=== PATIENT | male | born 1970 | race Caucasian/White ===

== ENCOUNTER 2020-05-15 07:48 | Day surgery (SDC) | payer OTHER, SELFPAY ==
--- NOTE | 2020-05-13 15:35 | HO.ANESPROP2 ---
Documented by User: Joyce Clemens 05/13/20 15:36 HPI - Anesthesia Eval Consult details Narrative: 49yo M for Colonoscopy [facility] Past Medical History Medical History Elevated cholesterol GERD (gastroesophageal reflux disease) Hx of hearing loss Surgical History Surgical History History of urologic surgery Social History Social History Smoking Status: Never smoker Use of substances other than those prescribed or required for medical reasons: No Advance Directives: No Meds Allergies Allergy/AdvReac Type Severity Reaction Status Date / Time No Known Allergies Allergy Verified 05/09/20 14:32 Home Medications Medication Instructions Recorded Confirmed Type esomeprazole magnesium [Nexium] 20 mg PO DAILY 05/09/20 05/09/20 History Exam Exam Date and Time: May 13, 2020 5665 Assessment and Plan Assessment Anesthesia Assessment: Chart Reviewed Documented by User: Giuseppe Vu 05/15/20 10:06 [facility] Past Medical History Medical History Elevated cholesterol GERD (gastroesophageal reflux disease) Hx of hearing loss Surgical History Surgical History History of urologic surgery Social History Social History Smoking Status: Never smoker Use of substances other than those prescribed or required for medical reasons: No Advance Directives: No Meds Allergies Allergy/AdvReac Type Severity Reaction Status Date / Time No Known Allergies Allergy Verified 05/09/20 14:32 Home Medications Medication Instructions Recorded Confirmed Type esomeprazole magnesium [Nexium] 20 mg PO DAILY 05/09/20 05/09/20 History Exam Airway Mallampati Class: III TM Dist: >3cm Neck ROM: Full Heart: RRR Assessment and Plan Assessment Anesthesia Assessment: Anesthesia Plan Discussed Final Anesthetic Review NPO: Yes ASA Class: II Anesthetic Plan Anesthetic Plan: MAC:
[2020-05-15 08:15] VITALS: BP 128/89; PULSE 66; RESP 16; TEMP 525.5; TEMP 978; O2SAT 99
[2020-05-15 08:16] VITALS: BMI 27.9
--- NOTE | 2020-05-15 09:17 | P.HPSUR_ITS ---
Pre-Procedural Eval Section A The patient is an INPATIENT: No The History & Physical has been completed within 30 days and I have reviewed it.: No Section B Chief Complaint: screening Details of Present Illness: This is his second colonoscopy his last was 10 years ago and normal. He denies any bowel or upper GI problems. THere are no prior problems with anesthesia or sedation. He denies any cardiac or respiratory problems. His father had colon polyps removed at age 50. Relevant Family History (Specify if Yes): Yes Relevant Social History: None Present Medications: see Short Stay [facility] assessment Medical History: Significant History (OBESITY Hyperlipidemia. vitamin D deficiency. Hearing loss unspecified ear) History of Previous Operations: Relevant previous surgery/procedure and date(s) ( urologic surgery at 19 years of age to remove a growth on one of his ureters) Allergies: Allergies Allergy/AdvReac Type Severity Reaction Status Date / Time No Known Allergies Allergy Verified 05/09/20 14:32 Review of Systems Sugical H&P ROS: Negative: Constitution, Cardiovascular, Respiratory and Gastrointestinal Exam Surgical H&P Exam: Normal: Heart, Normal: Lungs, Normal: Extremities and Normal: Abdomen Plan Diagnosis/Plan: Unchanged Patient has been examined and remains a candidate for the planned procedure
--- NOTE | 2020-05-15 09:24 | P.BOP_ITS ---
Brief Operative Note Date of procedure: 05/15/20 Pre-op diagnosis: colon cancer screening, FH of colon polyps Post-op diagnosis: other (Colon polyps, diverticulosis) Procedure: COLONOSCOPY TILL CECUM WITH BIOPSIES Consent: Indications for the procedure and potential complications of bleeding, perforation, reaction to medications and missed diagnosis were discussed with the patient and informed consent was obtained. Instrument: Olympus PCF H 190 L variable stiffness pediatric colonoscope Monitoring: Vital signs and clinical assessment, intermittent blood pressure monitoring, continuous EKG monitoring, Pulse oximetry and Carbon Dioxide monitoring were done throughout the procedure. Colon withdrawl time was 15 minutes. Procedure: The patient was placed in the left lateral decubitis position and pre-procedure medications were administered. After a digital rectal examination of the ano-rectum, the video colonoscope was inserted into the rectum and advanced through the colon to the cecum. The colonoscope was slowly withdrawn in a retrograde panoramic fashion and the colon mucosa was carefully examined including a retroflexed view of the rectum. Findings and interventions are described below. Procedure Difficulty: Without difficulty Findings: Terminal Ileum: Distal 5 cm was examined and appeared normal Cecum: Normal Ascending Colon: A 4-5 mm diminutive appearing polyp removed with the cold biopsy Transverse Colon: Normal Descending Colon: Moderate diverticulosis Sigmoid Colon: Moderate diverticulosis Rectum: A 3-4 mm diminutive appearing polyp removed with the cold biopsy Ano-rectum: Normal Colon preparation: Excellent Impression and Post Procedure Diagnosis: Colonoscopy Findings: Two diminutive polyps removed Moderate diverticulosis seen in the left colon Plan: Await pathology results Patient has an appointment on 06/10/20 in the GI Clinic with Marlyn Lezama NP -. Repeat Colonoscopy interval based on path results - in 5 years if polyps are adenomatous and 10 years if polyps are hyperplastic. Above findings were reviewed with the patient and [colon polyps] and [diverticulosis] handouts were given in the discharge area Surgeon: Pio Campos MD Anesthesia: MAC (Dr Vu) Alternative Financing Specialist: Arely Simmons Estimated blood loss (mL): 0 Pathology: other (A. AC polyp x 1, B. Rectal polyp x 1) Condition: stable Disposition: PACU
[2020-05-15 10:02] VITALS: BP 123/84; PULSE 76; RESP 18; TEMP 36.1; O2SAT 98
[2020-05-15 10:15] VITALS: BP 120/82; PULSE 65; RESP 18; O2SAT 98
--- NOTE | 2020-05-15 10:28 | PC.NURSE ---
1027 AWAKE ALERT [facility]STA PO MONITORS AND IVF DC'D TOTAL IN IS 700 ML LR ASST OOB CH STEADY, IV DC'D TIP INTACT PRESSURE AND DRESSING TO SITE, DRESSED SELF AT BS CALL PAGAN IN REACH PLAN TO AMB TO DC
--- NOTE | 2020-05-15 10:51 | HO.POSTANES ---
Post Anesthesia Evaluation Post Anesthesia Evaluation Vital Signs: Vital Signs Temp Pulse Resp BP Pulse Ox 05/15/20 10:15 97 F 65 18 120/82 98 05/15/20 10:02 97 F 76 18 123/84 98 05/15/20 08:15 97.8 F 66 16 128/89 99 Anesthesia: Monitored Mental Status: Awake Pain Control: Satisfactory Nausea/Vomiting: None Hydration: Adequate Anesthesia-Related Issues: No Anes. Related Issues
== END 2020-05-15 23:59 | disposition home or self-care (01) ==
PROVIDERS: PCP Internal Medicine; Visit Provider Internal Medicine Gastroenterology
PROC: 0DJD8ZZ Inspection of Lower Intestinal Tract, Via Natural or Artificial Opening Endoscopic (ICD-10-PCS; CPT 45378; principal; 2020-05-15 09:00)
DX: Z12.11 Encounter for screening for malignant neoplasm of colon (principal); Z83.71 Family history of colonic polyps; K63.5 Polyp of colon; K62.1 Rectal polyp; K57.30 Diverticulosis of large intestine without perforation or abscess without bleeding; K21.9 Gastro-esophageal reflux disease without esophagitis; E78.5 Hyperlipidemia, unspecified; Z79.899 Other long term (current) drug therapy
CPT/HCPCS: 45380; 88305

== ENCOUNTER → 2020-06-10 09:00 | Outpatient (BNVA) | payer OTHER, SELFPAY | PROVIDERS: PCP Internal Medicine; Referring Provider Internal Medicine; Visit Provider Nurse Practitioner | DX: Z76.89 Persons encountering health services in other specified circumstances (principal) ==

== ENCOUNTER 2021-01-26 15:16 | Outpatient (REF) | payer OTHER, SELFPAY ==
--- NOTE | 2021-01-26 16:36 | MHC.AU.ANR ---
Adult Audiological Evaluation Date of Visit: 01/26/21 Reason for Appointment: Audiological evaluation due to concern for decreased hearing. Mr. Fritz reports difficulties hearing from his right ear. He notes that he was previously seen by ENT Dr. Gavin at [facility] [employer] and was diagnosed with an asymmetrical hearing loss. He believes he had an MRI that ruled out any abnormalities in the right ear and was told that the loss in the right ear was likely due to noise exposure. Mr. Fritz reports that he's gradually noticing increased difficulties hearing and understanding speech. He notes difficulties in meetings at work and in background noise. He has an extensive history of noise exposure related to serving the [employer] for 26 years. He is still currently working in the [employer]. Does patient feel they have a hearing loss?: Yes If Yes, Which Ear?: Right Ear Has hearing been tested previously?: Yes Previous Hearing Test Results: Joellen, Elliott, Gary, Lucita, results not available for review today. Hearing Handicap Inventory: HHIE SCORE: 20 Based on HHIE score, patient has: Mild to moderate perceived hearing handicap Ear History: Bothersome Tinnitus/Ringing/Noises in Ears: Right Ear Blocked/Full Sensation in Ear(s): Right Ear History of occupational noise exposure?: Yes History: History: Yes Branch: [employer] Years in : 20+ Years Medical History: Medical History: Unremarkable Medical History Otoscopy: Right Ear: Unremarkable Left Ear: Unremarkable Tympanometry: Tympanometry performed due to: To assess integrity of the middle ear system Right Ear: Normal Middle Ear System (Type A) Left Ear: Normal Middle Ear System (Type A) Hearing Evaluation: Transducer(s) Used: Insert Earphones, Bone Conduction Method: Conventional Audiometry Stimuli Used: Pure Tones Right Ear: Description of Hearing: Normal hearing at 250 Hz, sloping to a mild to severe sensorineural hearing loss from 500-8000 Hz. Hearing in the right ear is 20-80 dBHL worse than the right ear across the frequency range. Left Ear: Description of Hearing: Normal hearing from 250-8000 Hz. Speech Recognition Threshold (SRT): Method Used: Monitored Live Voice Stimuli Used: Spondee Words Right Ear: 30 dBHL Left Ear: 5 dBHL Word Discrimination: Method: Monitored Live Voice Word Lists Used: NU-6 Right Ear: 84% at 70 dBHL Left Ear: 92% at 45 dBHL Recommendations: Audiological re-evaluation in one year. Amplification use in the right ear is recommended. Patient is interested in pursuing a hearing aid for the right ear. He will check to see if he is eligible for VA, DOD, or insurance benefits for hearing aids. Discussed options briefly and advised that if he would like to pursue a hearing aid through our clinic he is welcome to return for a hearing aid evaluation. If medical records indicate that Mr. Fritz has NOT had an MRI to rule out abnormalities of the right ear, it is recommended that he follow-up with an ENT physician for evaluation. Diagnosis: Primary Diagnosis: H90.41 SNHL Unilateral Right Ear, W/Unrestricted Contralateral Hearing Services Performed: Services Performed: Comprehensive Audiological Evaluation (CPT 85383) Tympanometry (CPT 67666) Signature: Provider: Deb Perea, CCC-A
== END 2021-01-26 15:17 | disposition home or self-care (01) ==
LOC: HO.SH 15:16
PROVIDERS: Visit Provider Internal Medicine
DX: H90.41 Sensorineural hearing loss, unilateral, right ear, with unrestricted hearing on the contralateral side (principal)
CPT/HCPCS: 92557; 92567

== ENCOUNTER 2021-06-10 14:16 | Outpatient (REF) | payer SELFPAY ==
--- NOTE | 2021-06-10 15:09 | MHC.AU.HAS ---
Hearing Aid Evaluation Date of Visit: 06/10/21 Historical Information: Description of Hearing: Normal hearing left ear. Mild to severe SNHL in the right ear. Current personal amplification information, if applicable: None Summary: Mr. Fritz is interested in purchasing a hearing aid for the right ear. He was seen for an audiological evaluation on 01/26/2021, at which time a monaural hearing aid for the right ear was recommended. Discussed hearing aid styles and technologies. He is interested in a LUCERO style rechargeable hearing aid in SaaSMAX-level technology. Demoed a Phonak aid in the clinic today, and he noticed an improvement and a decrease in his tinnitus. Hearing Aid Prescription: Based on the individual?s shared listening needs, communication environments, dexterity, desire for connectivity, and personal preferences, the following prescription for amplification has been made: Right ear: Cupola Melting Supervisor: Phonak Model: Steam[employer] Technologyeo P70-R Battery Size: Rechargeable Color: P5 Jukebox Routeman: Size 1 M Type of Dome: vented Plan of Care: Patient wishes to purchase hearing aids as prescribed. Medical Clearance to be requested from PCP/ENT. Hearing Instrument Fitting to be scheduled when materials arrive. Hearing aid ordered. Paid $350 down payment. Primary Diagnosis: H90.41 SNHL Unilateral Right Ear, W/Unrestricted Contralateral Hearing Signature: Provider: Deb Perea, EVA-A
== END 2021-06-10 14:17 | disposition home or self-care (01) ==
LOC: HO.HAP 14:16
PROVIDERS: Visit Provider Internal Medicine
DX: Z46.1 Encounter for fitting and adjustment of hearing aid (principal); H90.41 Sensorineural hearing loss, unilateral, right ear, with unrestricted hearing on the contralateral side
CPT/HCPCS: 92591

== ENCOUNTER 2021-06-26 09:19 | Outpatient (REF) | payer SELFPAY | END 2021-06-26 09:20 | disposition home or self-care (01) | LOC: HO.HAP 09:19 | PROVIDERS: Visit Provider Internal Medicine | DX: Z46.1 Encounter for fitting and adjustment of hearing aid (principal); H90.41 Sensorineural hearing loss, unilateral, right ear, with unrestricted hearing on the contralateral side | CPT/HCPCS: V5257; V5299 ==

== ENCOUNTER 2021-07-15 09:49 | Outpatient (REF) | payer SELFPAY | END 2021-07-15 09:50 | disposition home or self-care (01) | LOC: HO.HAP 09:49 | PROVIDERS: Visit Provider Internal Medicine | DX: Z13.89 Encounter for screening for other disorder (principal) ==

== ENCOUNTER 2022-01-26 12:40 | Outpatient (REF) | payer OTHER, SELFPAY ==
--- NOTE | ~2022-01-26 | XR_ITS ---
EXAMINATION: XR LUMBOSACRAL SPINE CLINICAL INFORMATION: Low back pain COMPARISON: None TECHNIQUE: Three views of the lumbosacral spine. FINDINGS: Moderate-severe L5-S1 degenerative disc disease with slight retrolisthesis. Mild degenerative disc disease at L1-L2 and L4-L5. No fracture. XR/XR lumbar spine 2-3V IMPRESSION: Moderate-severe L5-S1 degenerative disc disease with slight retrolisthesis.
== END 2022-01-26 12:41 | disposition home or self-care (01) ==
LOC: HO.XRAY 12:40
PROVIDERS: PCP Internal Medicine; Visit Provider Nurse Practitioner Family
DX: M54.50 Low back pain, unspecified (principal)
CPT/HCPCS: 72100

== ENCOUNTER 2022-04-08 07:00 | Outpatient (RCR) | payer OTHER, SELFPAY ==
--- NOTE | 2022-02-17 08:26 | MHC.PT.EP ---
[facility] [place] Office [place] Office [place] Office [address] [place] [address] [phone] F: [phone] F: [phone] F: [phone] F: [phone] Physical Therapy Plan of Care Date of Evaluation: Date of Surgery: NA Diagnosis: LOW BACK PAIN Assessment: Pt IS 51 YO M REFERRED TO PT [facility] WITH LBP. Pt REPORTS PAIN IN BACK X 1 YR (INITIALLY AGGRAVATED BY [employer] SIT UP TEST LAST YEAR, WITH RECENT IRRITATION STARTING ABOUT 1 MONTH AGOE (IS SUPPOSED TO HAVE TESTING THIS WEEKEND). PER XRAY, Pt WITH MOD-SEVER DDD L5 SI AREA WITH MIN RETROLISTHESIS. PRESENTS WITH DECREASED ABD STRENGTH, DECREASED LE FLEXIBILITY. GOOD PT CANDIDATE TO ADDRESS THESE ISSUES. ED RE SIT UP TEST NOT APPROP FOR HIM (WILL SPEAK WITH PCP RE OPTING OUT OF THIS PORTION/PLANK TEST Frequency and Duration: The patient will be seen 2X/WK X 6 WKS Short Term Goals: 1. DECREASED FREQ R LE SXS 2. INCREASED AWARENESS BACK CARE/POSTURE 3. Pt TO PERF 2-3 TASKS WITH PROPER BODY MECH Artificial Breast Fabricator Goals: 1. I HEP WITH DC EX PLAN 2. DECREASED BACK PAIN AT LEAST 50% WITH ADLS 3. IMPROVED MOD OSWESTRY (SOC=19/50) Treatment Plan: Modalities to reduce pain, spasms and effusion. Manual therapy to restore motion and function. Therapeutic exercise to improve strength and flexibility. Neuromuscular re-education for posture and balance. Therapeutic activities to return to functional activities of daily living. Electronically signed by: JONO SHEETS PT Please sign and return to therapist. Thank you for your referral.
--- NOTE | 2022-02-19 09:45 | MHC.PT.EP ---
[facility] [place] Office [place] Office [place] Office [address] [place] [address] [phone] F: [phone] F: [phone] F: [phone] F: [phone] Physical Therapy Plan of Care Date of Evaluation: Date of Surgery: NA Diagnosis: LOW BACK PAIN Assessment: Pt IS 51 YO M REFERRED TO PT [facility] WITH LBP. Pt REPORTS PAIN IN BACK X 1 YR (INITIALLY AGGRAVATED BY [employer] SIT UP TEST LAST YEAR, WITH RECENT IRRITATION STARTING ABOUT 1 MONTH AGOE (IS SUPPOSED TO HAVE TESTING THIS WEEKEND). PER XRAY, Pt WITH MOD-SEVER DDD L5 SI AREA WITH MIN RETROLISTHESIS. PRESENTS WITH DECREASED ABD STRENGTH, DECREASED LE FLEXIBILITY. GOOD PT CANDIDATE TO ADDRESS THESE ISSUES. ED RE SIT UP TEST NOT APPROP FOR HIM (WILL SPEAK WITH PCP RE OPTING OUT OF THIS PORTION/PLANK TEST Frequency and Duration: The patient will be seen 2X/WK X 6 WKS Short Term Goals: 1. DECREASED FREQ R LE SXS 2. INCREASED AWARENESS BACK CARE/POSTURE 3. Pt TO PERF 2-3 TASKS WITH PROPER BODY MECH Communications Planner Goals: 1. I HEP WITH DC EX PLAN 2. DECREASED BACK PAIN AT LEAST 50% WITH ADLS 3. IMPROVED MOD OSWESTRY (SOC=19/50) Treatment Plan: Modalities to reduce pain, spasms and effusion. Manual therapy to restore motion and function. Therapeutic exercise to improve strength and flexibility. Neuromuscular re-education for posture and balance. Therapeutic activities to return to functional activities of daily living. Electronically signed by: JONO SHEETS PT Please sign and return to therapist. Thank you for your referral.
--- NOTE | 2022-02-19 09:46 | MHC.PT.OD ---
[facility] [place] Office [place] [facility] [place] Office [address] [place] [address] [phone] F: [phone] F: [phone] F: [phone] F: [phone] Physical Therapy Daily Note Diagnosis: LOW BACK PAIN Date of Surgery: NA Date of Evaluation: 02/17/22 Date of Treatment: 02/19/22 Treatments to Date: 2 Cancellations to Date: No Shows to Date: Authorized Visits: Insurance End Date: Precautions/ Contraindications:Hx R sciatcia sx radiating to buttock intermittently Subjective: Pt states he is scheduled to undergo physical fitness test (running, crunches, and push-ups) this weekend, has concerns and is hoping to obtain clearance to push back this physical fitness testing for a few weeks after improving current condition with therapy. Has been doing stretches, feels his calves are very tight. Did have some sx after trying to walk briskly yesterday. Pain Score and Location: 7 LB/R LE Objective Flowsheet: Tests & Measures PT EVAL Exercises BIKE WITH ABD BRACING FOR WARM UP Instructed and reviewed HIP ER/IR stretch with goals of understanding what stretch is for avoidance of sx which radiate down the leg or cause R sided back pain, seated 90/90 HS stretch, also shown seated HS stretch x 20 sec hold x 4R, standing HS stretch for variance of position x 4R x 20 sec hold. Child pose stretches fwd/laterally x 4R x 20 sec hold, seated table slides x 4R x 20 sec hold. Quadriped position with neutral core stabilization for prep of planks moving forward x 5 sec. Hooklying abdominal brace in neutral x 2 set 5R, discussed lumbar support/towel roll against back for support. Education re: modification of body mechanics/movements avoidance of shear forces, educated re: golfers' lift in lieu of trunk flexion at waist including squatting and movement positions. Importance of frequent low load stretching, avoidance of tasks which irritate sx, goal of exercises. Stretching frequently throughout the day several times. Prone over 1 pillow for HG IASTM to R lumbar R QL and paraspinal regions with erythema response noted to R lumbar paraspinals. Also applied two strips ROCKTAPE vertically for paraspinal traction in addition to two lateral I strips pulled midline<>lateral tension to ease QL mm restriction and ease tension region of lumbar. Pt educated re: application/removal/indications for use. ED RE DX/EVAL FINDINGS/RX PLAN. ED RE SIT POSTURE WITH TOWEL ROLL. DISCUSSION RE TESTING (SUPPOSED TO DO TESTING THIS WEEKEND)..RECOMMENDED HE DOES NOT DO SIT UP PORTION and delay timing of PT test to ease... therapist to send this note along with eval to WITH PCP VS INFO FROM THIS EVAL) Modalities Assessment: 02/19/22 Pt presents for second visit of PT today, presents with intermittent sx radiating into R buttocks. Sx consistent with HNP like symptoms. Pt sx irritated by sitting and flexed positions but demonstrated good tolerance for trial of activities in the office this date. Pt would benefit from delay of PT test (scheduled for this weekend) to be able to allow time for recovery/strengthening of core/lumbar region as current activities such as performing crunches and running would likely exacerbate sx. Pt has not yet attempting running, reports tried to walking a brisk mile yesterday with fair tolerance. He states he is not looking to get out of performance of fitness testing but is rather seeking a delay in time of performing in a few weeks it to allow increased time for therapy to take effect. He is highly motivated and was initiated in modification tasks for prone planking- by starting neutral core control in quadriped position. We discussed recommendation in performing goal of prone plank vs crunches moving forward as a better alternative for fitness screening. Pt issued written HEP this date (see sheets). Secondary therapist to fax form that pt would need signed off to referring provider office for modification of PT testing. Pt to be seen in PT office twice a week for current sx. Pt IS 51 YO M REFERRED TO PT FROM [facility] WITH LBP. Pt REPORTS PAIN IN BACK X 1 YR (INITIALLY AGGRAVATED BY FITNESS SIT UP TEST LAST YEAR, WITH RECENT IRRITATION STARTING ABOUT 1 MONTH AGOE (IS SUPPOSED TO HAVE TESTING THIS WEEKEND). PER XRAY, Pt WITH MOD-SEVER DDD L5 SI AREA WITH MIN RETROLISTHESIS. PRESENTS WITH DECREASED ABD STRENGTH, DECREASED LE FLEXIBILITY. GOOD PT CANDIDATE TO ADDRESS THESE ISSUES. ED RE SIT UP TEST NOT APPROP FOR HIM (WILL SPEAK WITH PCP RE OPTING OUT OF THIS PORTION/PLANK TEST PT Plan: Assess response to core stabilization, manual therapy IASTM/ taping Note to be faxed to [facility] office to aide in expediting goal of delaying time of PT testing to allow patient to improve current sx. Short Term Goals: 1. DECREASED FREQ R LE SXS 2. INCREASED AWARENESS BACK CARE/POSTURE 3. Pt TO PERF 2-3 TASKS WITH PROPER BODY MECH [employer] Goals: 1. I HEP WITH DC EX PLAN 2. DECREASED BACK PAIN AT LEAST 50% WITH ADLS 3. IMPROVED MOD OSWESTRY (SOC=) Electronically signed by: Shannon Aparicio, PT, DPT
== END 2022-04-13 09:30 | disposition home or self-care (01) ==
LOC: HO.PTWFD 07:00
PROVIDERS: PCP Internal Medicine; Visit Provider Nurse Practitioner Family
DX: M54.50 Low back pain, unspecified (principal)
CPT/HCPCS: 97110; 97140; 97161; 97530; 97535

== ENCOUNTER 2022-07-30 08:25 | Outpatient (REF) | payer OTHER, SELFPAY ==
[2022-07-30 08:43] LABS: MANUAL DIFF FLAG NO
[2022-07-30 09:15] LABS: Basophils Percent Auto 0.4 % (0-2); Eosinophils Absolute Auto 0.1 X10*3/uL (0.0-0.4); Eosinophils Percent Auto 2.5 % (0-4); Hematocrit 50.4 % (42.0-52.0); Hemoglobin 16.6 g/dl (14.0-18.0); Imm Gran Abs Auto 0.02 X10*3/uL (0.00-0.03); Imm Gran Pct Auto 0.4 % (0.0-0.4); Lymphocytes Absolute Auto 1.6 X10*3/uL (1.2-4.9); Lymphocytes Percent Auto 27.4 % (20-40); Mean Corpuscular HGB Conc 32.9 g/dl (31.0-36.0); Mean Corpuscular Hemoglobin 28.4 pg (27.0-33.0); Mean Corpuscular Volume 86.2 fL (80.0-98.0); Mean Platelet Volume 12.1 fL (9.4-12.4); Monocytes Absolute Auto 0.5 X10*3/uL (0.1-1.2); Neutrophils Absolute Auto 3.4 x10*3/uL (2.0-8.3); Neutrophils Percent Auto 60.3 % (45-73); Platelet Count 200 X10*3/uL (160-400); Red Blood Count 5.85 X10*6/uL (4.60-5.80); Red Cell Distribution Width 13.5 % (11.0-16.0); White Blood Count 5.7 X10*3/uL (4.8-10.8)
[2022-07-30 09:26] LABS: Appearance Urine Clear; Color Urine Yellow; Glucose Urine UA Negative (Negative); Leukocyte Esterase Urine Negative (Negative); Nitrite Urine Negative (Negative); PH 7.5 (5.0-9.0); Specific Gravity - Urine <= 1.005 (1.005-1.025); Urine Blood Negative (Negative); Urine Ketones Negative (Negative); Urine Protein Negative (Neg-Trace)
[2022-07-30 09:48] LABS: Alanine Aminotransferase 28 U/L (0-40); Albumin Level 4.2 g/dL (3.5-5.0); Alkaline Phosphatase 70 U/L (39-117); Anion Gap 11 (12-20); Aspartate Amino Transferase 23 U/L (5-37); Bilirubin Total 1.1 mg/dL (0.0-1.0); Blood Urea Nitrogen 19 mg/dL (9-16); Calcium 9.3 mg/dL (8.4-10.2); Carbon Dioxide 27 mmol/L (22-29); Chloride 101 mmol/L (96-108); Cholesterol 225 mg/dL; Estimated Glomerular Filt Rate > 60; Glucose Fasting 92 mg/dL (60-99); HDL Cholesterol 32 mg/dL; LDL Cholesterol Calculated 146 mg/dl; Potassium 4.4 mmol/L (3.3-5.1); Sodium 135 mmol/L (135-145); Triglycerides 235 mg/dL
[2022-07-30 09:54] LABS: PSA,Total (Free>4and<10) 0.99 ng/mL (0.00-4.00); TSH reflex Free T4 1.99 uIU/mL (0.32-4.0); Vitamin D 25-OH Total 18.9 ng/mL (>30)
== END 2022-07-30 08:26 | disposition home or self-care (01) ==
LOC: HO.LAB 08:25
PROVIDERS: PCP Internal Medicine; Visit Provider Internal Medicine
DX: Z00.00 Encounter for general adult medical examination without abnormal findings (principal); Z12.5 Encounter for screening for malignant neoplasm of prostate; R39.14 Feeling of incomplete bladder emptying; R30.0 Dysuria; E55.9 Vitamin D deficiency, unspecified; E78.2 Mixed hyperlipidemia
CPT/HCPCS: 36415; 80053; 80061; 81003; 82306; 84153; 84443; 85025

== ENCOUNTER 2022-09-20 12:17 | Outpatient (REF) | payer OTHER, SELFPAY | END 2022-09-20 12:18 | disposition home or self-care (01) | LOC: HO.SH 12:17 | PROVIDERS: Visit Provider Internal Medicine | DX: Z13.89 Encounter for screening for other disorder (principal) ==

== ENCOUNTER 2022-09-20 13:00 | Outpatient (REF) | payer SELFPAY ==
--- NOTE | 2022-09-20 16:29 | MHC.AU.HA3 ---
Hearing Instrument Follow-Up- Binaural Date of Visit: 09/20/22 Right Ear: Make, Model, Color, Serial Number: Bianka Bradshaw [id number] SN: [id number] Color: Florencia Buttonhole Tacker Repair Warranty: 09/14/2024 Buttonhole Tacker Loss and Damage Warranty: 09/14/2024 [facility] Service Plan: Battery Size: Rechargeable Full Fashioned Garment Knitter/Slim Tube: 1M Earmold/Dome/CShell/SlimTip:Small vented dome Type of Wax Guard: Cerushield Dispensed By: [facility] Date of Fittin06/26/2021 Follow-Up Summary: Maninder was initially scheduled for an updated audiological evaluation. However, he declined those services, reporting that his hearing is tested annually at work and an updated test is unnecessary at this time. [facility] received doctor's order for test and last test here was in January 2021 and tests are recommended every 1-2 years. Maninder again opted not to have an audiological evaluation. His hearing is reportedly stable based on his work evaluations. He reportedly only needed an appointment for hearing aid maintenance. Cleaned the hearing aid. Vacuumed microphones. Replaced dome and wax guard. A listening check demonstrated that the hearing aid is in good working order. He reported that overall he is doing well with the hearing aid and is trying to wear it more consistently. He reportedly still has difficulty with background noise (e.g., at a restaurant or baseball game). Increased noise management settings and discussed importance of daily consistent use in acclimating to background noise as data logging showed only about 5 hours of use per day. Recommendations: Hearing instrument maintenance in 6 months, or sooner if needed. Please contact our clinic with any questions or concerns. Diagnosis Code(s): Primary Diagnosis: H90.41 SNHL Unilateral Right Ear, W/Unrestricted Contralateral Hearing Signature: Provider: Emanuel Luevano, [facility]
== END 2022-09-20 13:01 | disposition home or self-care (01) ==
LOC: HO.HAP 13:00
PROVIDERS: Visit Provider Internal Medicine
DX: Z46.1 Encounter for fitting and adjustment of hearing aid (principal); H90.41 Sensorineural hearing loss, unilateral, right ear, with unrestricted hearing on the contralateral side
CPT/HCPCS: V5267

== ENCOUNTER 2023-02-21 16:50 | Outpatient (AMB) | payer OTHER, SELFPAY ==
--- NOTE | 2023-02-21 16:52 | MHC.PC.OV ---
Vital Signs 02/21/23 16:56 Height 5 ft 10 in Weight 196 lb 4 oz BMI 28.2 BP 124/80 Blood Pressure Location Lt brachial Position Sitting Pulse 60 Pulse Source Pulse Oximeter Pulse Oximetry (%) 97 Oxygen Delivery Method Room Air Intake Visit Reasons: hyperlipidemia, hearing loss right ear Carpenter Maintenance Required: No Accompanied by: Self / Same As Patient Allergies No Known Allergies Allergy (Verified 02/21/23 17:11) Medication List - Last Reconciled 02/21/23 by Christo Harrison MD No Known Home Meds Tobacco use date assessed: 02/21/23 Dental Screening Dental Screen Date: 02/21/23 Did you have a dental visit in the last 12 months?: Yes Did you have a dental problem in the last 6 months where you did not have access to dental care?: No Was dental information given to patient?: Patient has dentist HPI hyperlipidemia, hearing loss right ear HPI Details Patient comes in today for his follow up visit States that he feels okay He denies any headaches; relates (+) on and off dizziness at times Denies any chest pains, no SOB No nausea/vomiting, no abdominal pain No change in bowel habits noted Would like to know how he did on his labs done back in July 2022 Adds that he recently found out that several of his immediate family members, including his mother, sister, maternal grandmother and 2 aunts, were all diagnosed with brain aneurysm in the past 2 to 3 years and underwent successful corrective surgeries for their aneurysm and states that he was also strongly advised by their physicians to speak with his PCP about getting an MRA of the brain done to check him for aneurysm as well PFSH Medical History Diverticulosis Elevated cholesterol GERD (gastroesophageal reflux disease) Hx of hearing loss Mixed hyperlipidemia Overweight (BMI 25.0-29.9) Vitamin D deficiency Surgical History History of urologic surgery Hx of colonoscopy Family History Father CVD (cardiovascular disease) Mother Hypertension Social History Housing: House Alcohol intake: current Alcohol intake frequency: holidays/special occasions only Patient Tobacco Use Status: Never used Tobacco e-Cigarette/Vaping Use: Never Used Current occupational status: employed Cognitive needs: No Hearing needs: No Vision needs: Yes Questionnaire PHQ-9 Over the last 2 weeks, how often have you been bothered by any of the following problems? 1. Little interest or pleasure in doing things: not at all 2. Feeling down, depressed, or hopeless: not at all 3. Trouble falling or staying asleep, or sleeping too much: not at all 4. Feeling tired or having little energy: not at all 5. Poor appetite or overeating: not at all 6. Feeling bad about yourself - or that you are a failure or have let yourself or your family down: not at all 7. Trouble concentrating on things, such as reading the newspaper or watching television: not at all 8. Moving or speaking so slowly that other people could have noticed. Or the opposite - being so fidgety or restless that you have been moving around a lot more than usual: not at all 9. Thoughts that you would be better off or of hurting yourself in some way: not at all Total score: 0 Depression Screening Interpretation: Negative 29453 - PHQ-9 Billing: Yes Source: Developed by Drs. Dung Lilly, Che Pryor, Gallito Rice and colleagues, with an educational ange from [employer]. Thrive Questionnaire Date Thrive assessed: 02/21/23 I am a: Patient What is your living situation today?: I have a steady place to live Within the past 12 months, did the food you bought not last and you didn't have the money to get more?: Never true Within the past 12 months, did you worry whether your food would run out before you got money to buy more?: Never true Do you have trouble paying for medicines?: No Do you have trouble getting transportation to medical appointments?: No Do you have trouble paying your heating and electricity bill?: No Do you have trouble taking care of your child, family member or friend?: No Do you have trouble with day-to-day activities such as bathing, preparing meals, shopping, managing finances, etc.?: No Are you currently unemployed and looking for a job?: No Are you interested in more education?: No Please select the resources that you would like help with: None Currently or been in a relationship where the following occur: no concerns reported AUDIT C Alcohol Use Questionnaire (AUDIT-C) 1. How often do you have a drink containing alcohol?: Monthly or less 2. How many drinks containing alcohol do you have on a typical day when you are drinking?: 1 or 2 3. How often do you have six or more drinks on one occasion?: Never Total Score: 1 Score Reviewed/Action Taken: Yes TORSTEN-7 AMB Questionnaire TORSTEN-7 Date TORSTEN - 7 assessed: 02/21/23 Feeling nervous, anxious, or on edge: 0 = Not at all Not being able to stop or control worryin = Not at all Worrying too much about different things: 0 = Not at all Trouble relaxin = Not at all Being so restless that it is hard to sit still: 0 = Not at all Becoming easily annoyed or irritable: 0 = Not at all Feeling afraid as if something awful might happen: 0 = Not at all Total TORSTEN-7 score (0-4 normal; 5-9 mild; 10-14 moderate; 15-21 severe): 0 Source: Developed by Drs. Dung Lilly, Che Pryor, Gallito Rice and colleagues, with an educational ange from [employer]. TORSTEN-7 Assessment Billing TORSTEN-7 Assessment Tool: TORSTEN-7 Assessment 90339 Review of Systems Const Denies chills, Denies fatigue, Denies fever(s) and Denies headache(s) ENT Denies dysphagia, Reports dizziness (occasional), Denies otalgia, Denies headache(s), Denies neck pain, Denies odynophagia and Denies sore throat Card Denies chest pain, Denies palpitations and Denies dyspnea Resp Denies cough and Denies dyspnea GI Denies abdominal pain, Denies constipation, Denies dysphagia, Denies heartburn, Denies diarrhea, Denies nausea, Denies odynophagia and Denies vomiting Denies dysuria, Denies nocturia and Denies urinary frequency Musc Denies neck pain Neuro Reports dizziness (occasional) and Denies headache(s) Endo Denies fatigue and Denies palpitations Physical exam (Primary Care) Vital Signs: Last Vital Signs Pulse 60 02/21/23 16:56 BP 124/80 02/21/23 16:56 Pulse Ox 97 02/21/23 16:56 Oxygen Delivery Method Room Air 02/21/23 16:56 BMI result Body Mass Index 28.2 Tobacco/Smoking Status: Tobacco use Status Tobacco use date assessed 02/21/23 02/21/23 17:00 Patient Tobacco Use Status Never used Tobacco 02/21/23 17:00 e-Cigarette/Vaping Use Never Used 02/21/23 17:00 PHQ-9: PHQ-9 Score PHQ-9: Total score 0 02/21/23 17:13 Depression Screening Interpretation: Negative Thrive Assessment: Date of Thrive Assessment Date Thrive assessed 02/21/23 02/21/23 17:00 Currently or been in a relationship where the following occur: no concerns reported Const General: no acute distress and alert HENMT Ears: TM's normal bilaterally and EAC's normal Throat: Yes posterior oropharynx normal and Yes tonsils normal (no TP congestion) Neck Neck: Yes no lymphadenopathy and Yes supple Thyroid: Thyroid normal Resp Auscultation: clear to auscultation bilaterally, no rales and no wheezes Cardio Rate: regular rate Rhythm: regular rhythm Heart sounds: no murmurs GI Palpation (GI): Soft to palpation and nontender Auscultation: normal bowel sounds Skin Rashes: no rashes Extrem General: Yes no clubbing, cyanosis or edema Results Reviewed Results Reviewed: Laboratory Tests 07/30/22 07/30/22 07/30/22 08:39 08:42 08:42 WBC 5.7 Hgb 16.6 Hct 50.4 Plt Count 200 Sodium 135 Potassium 4.4 Creatinine 1.12 Estimated GFR > 60 Fasting Glucose 92 Calcium 9.3 AST 23 ALT 28 Triglycerides 235 Cholesterol 225 LDL Cholesterol, Calc 146 HDL Cholesterol 32 Total PSA 0.99 25-OH Vitamin D Total 18.9 TSH 1.99 Ur Specific [place] <= 1.005 Urine Protein Negative Urine Glucose (UA) Negative Urine Blood Negative Assessment and Plan Assessment & Plan (1) Mixed hyperlipidemia: Code(s): E78.2 - Mixed hyperlipidemia Plan: Results of his labs done back in July 2022 reviewed and discussed with patient - advised that his cholesterol numbers are still elevated but have improved slightly from 2019 (LDL cholesterol is still at 146 mg/dl; was at 159 mg/dl back in 2019) Reinforced low cholesterol diet; patient prefers to continue with diet modification for now and avoid taking Rx as much as possible (2) Family history of brain aneurysm: Code(s): Z82.49 - Family history of ischemic heart disease and other diseases of the circulatory system Plan: States that he was recently informed that several of his immediate family were diagnosed with brain aneurysm in the past couple of years and ended up getting corrective surgeries done and that he was encouraged by their physicians that all other immediate family members get screened/checked for aneurysm as well Will send him for a brain MRA for further evaluation (3) Hearing loss in right ear: Code(s): H91.91 - Unspecified hearing loss, right ear Qualifiers: Hearing loss type: unspecified Qualified Code(s): H91.91 - Unspecified hearing loss, right ear Plan: Currently uses a hearing aid in his right ear; hearing in his left ear is normal Follow up with Speech and Hearing as scheduled (4) Vitamin D deficiency: Code(s): E55.9 - Vitamin D deficiency, unspecified Plan: Advised that his Vitamin D level remains low on his recent labs Will start him on Vitamin D3 2000 units QD (5) Overweight (BMI 25.0-29.9): Code(s): E66.3 - Overweight Plan: Reinforced diet/exercise as tolerated/lose weight Plan To return in 6 months for his next annual physical examination Orders: Orders MR angio head wo con Today Z82.49 - Family history of ischemic heart disease and other diseases of the circulatory system Medications: New cholecalciferol (vitamin D3) 50 mcg PO DAILY 90 days 90 caps 3RF E55.9 - Vitamin D deficiency, unspecified Coding Level of Care Code Est Pt Level 4 (41478) Diagnoses Mixed hyperlipidemia E78.2 Family history of brain aneurysm Z82.49 Hearing loss in right ear H91.91 Hearing loss type: unspecified Vitamin D deficiency E55.9 Overweight (BMI 25.0-29.9) E66.3 Additional Codes TORSTEN-7 Assessment Billing - TORSTEN-7 Assessment Tool: TORSTEN-7 Assessment 34781 ([id number])
[2023-02-21 16:56] VITALS: BP 124/80; PULSE 60; O2SAT 97; BMI 28.2
== END 2023-02-21 17:29 | disposition home or self-care (01) ==
PROVIDERS: Visit Provider Internal Medicine
DX: E78.2 Mixed hyperlipidemia (principal); Z82.49 Family history of ischemic heart disease and other diseases of the circulatory system; H91.91 Unspecified hearing loss, right ear; E55.9 Vitamin D deficiency, unspecified; E66.3 Overweight
CPT/HCPCS: 99214

== ENCOUNTER 2023-04-12 07:50 | Outpatient (REF) | payer OTHER, SELFPAY ==
--- NOTE | ~2023-04-12 | MR_ITS ---
EXAMINATION: MR ANGIOGRAPHY BRAIN WITHOUT CONTRAST CLINICAL INFORMATION: Family history of ischemic heart disease. Family history of brain aneurysms. COMPARISON: Brain MRI from 09/29/2016. TECHNIQUE: 3D [id number] MR angiography was performed through the brain without the use of intravenous gadolinium. 3D postprocessing including acquisition of multiplanar MIP reformats are obtained at the technologist workstation and utilized for image interpretation. Stenoses are assessed in accordance with NASCET criteria unless otherwise indicated. FINDINGS: Normal flow-related signal within the anterior circulation without evidence of focal stenosis or occlusion of the intradural internal carotid, middle cerebral, or anterior cerebral arteries. 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 origin of the right posterior cerebral artery. Otherwise, normal flow-related signal within the posterior circulation without evidence of focal stenosis or occlusion of the intradural vertebral, basilar, superior cerebellar, or posterior cerebral arteries. No demonstrated intradural aneurysms. No additional significant abnormalities on limited evaluation of the intracranial structures. MR/MR angio head wo con IMPRESSION: Normal MRA of the head. No demonstrated intracranial aneurysms.
== END 2023-04-12 07:51 | disposition home or self-care (01) ==
LOC: HO.MRI 07:50
PROVIDERS: PCP Internal Medicine; Visit Provider Internal Medicine
DX: Z13.89 Encounter for screening for other disorder (principal); Z82.49 Family history of ischemic heart disease and other diseases of the circulatory system
CPT/HCPCS: 70544

== ENCOUNTER 2023-06-20 09:19 | Outpatient (REF) | payer SELFPAY | END 2023-06-20 09:20 | disposition home or self-care (01) | LOC: HO.HAP 09:19 | PROVIDERS: Visit Provider Internal Medicine | DX: Z13.89 Encounter for screening for other disorder (principal) ==

== ENCOUNTER 2023-06-22 15:32 | Outpatient (REF) | payer SELFPAY | END 2023-06-22 15:33 | disposition home or self-care (01) | LOC: HO.HAP 15:32 | PROVIDERS: Visit Provider Internal Medicine | DX: Z13.89 Encounter for screening for other disorder (principal) ==

== ENCOUNTER 2023-10-19 15:35 | Outpatient (AMB) | payer OTHER, SELFPAY ==
[2023-10-19 15:42] VITALS: BP 122/80; PULSE 100; O2SAT 94; BMI 29.3
--- NOTE | 2023-10-19 15:42 | A.OFFPC_ITS ---
Vital Signs 10/19/23 15:42 Height 5 ft 10 in Weight 204 lb BMI 29.3 BP 122/80 Blood Pressure Location Lt brachial Position Sitting Pulse 100 Pulse Source Pulse Oximeter Pulse Oximetry (%) 94 Oxygen Delivery Method Room Air Intake Visit Reasons: pe Intake Note: Patient is here today for a physical. Search Strategist Required: No Allergies No Known Allergies Allergy (Verified 10/19/23 16:15) Medication List - Last Reconciled 10/19/23 by Christo Harrison MD omeprazole magnesium (Prilosec OTC) 20 mg PO DAILY Tobacco use date assessed: 10/19/23 Dental Screening Dental Screen Date: 10/19/23 Did you have a dental visit in the last 12 months?: No Did you have a dental problem in the last 6 months where you did not have access to dental care?: No HPI pe HPI Details Patient comes in today for his annual physical examination States that he has been experiencing increased heartburns often lately States that he started taking again some OTC Prilosec 20 mg QD about 2 weeks ago - notes that the Rx helped with his heartburns but he still gets them often States that he has not changed significantly his diet or the way he eats States that he feels okay otherwise He denies any headaches or dizziness Denies any chest pains, no SOB No nausea/vomiting, no abdominal pain No change in bowel habits noted He denies any acute urinary symptoms Adds that he has a small and slightly raised dark lesion on his left upper cheek - states that the lesion has been present for a few years now but feels that it has gotten slightly bigger lately and thinks that it is also slightly darker in appearance and he would like to have this checked out further He had his screening colonoscopy last done with Dr. Campos in 05/2020 and is not due for repeat colonoscopy until 2029 He had his brain MRA done back in April 2023 and is happy and relieved that his MRA came out normal with no evidence of aneurysms [facility] Medical History (Updated 10/20/23 @ 04:08 by Christo Harrison MD) Vitamin D deficiency Mixed hyperlipidemia Overweight (BMI 25.0-29.9) Diverticulosis Hx of hearing loss GERD (gastroesophageal reflux disease) Elevated cholesterol Surgical History Hx of colonoscopy History of urologic surgery Family History Father CVD (cardiovascular disease) Mother Hypertension Social History Housing: House Alcohol intake: current Alcohol intake frequency: holidays/special occasions only Patient Tobacco Use Status: Never used Tobacco e-Cigarette/Vaping Use: Never Used Current occupational status: employed Cognitive needs: No Hearing needs: No Vision needs: Yes Questionnaire PHQ-9 Over the last 2 weeks, how often have you been bothered by any of the following problems? 1. Little interest or pleasure in doing things: not at all 2. Feeling down, depressed, or hopeless: not at all 3. Trouble falling or staying asleep, or sleeping too much: not at all 4. Feeling tired or having little energy: not at all 5. Poor appetite or overeating: not at all 6. Feeling bad about yourself - or that you are a failure or have let yourself or your family down: not at all 7. Trouble concentrating on things, such as reading the newspaper or watching television: not at all 8. Moving or speaking so slowly that other people could have noticed. Or the opposite - being so fidgety or restless that you have been moving around a lot more than usual: not at all 9. Thoughts that you would be better off or of hurting yourself in some way: not at all Total score: 0 Depression Screening Interpretation: Negative Depression Screening Done: Yes 33831 - PHQ-9 Billing: Yes Source: Developed by Drs. Dung Lilly, Che Pryor, Gallito Rice and colleagues, with an educational ange from [employer]. Thrive Questionnaire Date Thrive assessed: 10/19/23 I am a: Patient What is your living situation today?: I have a steady place to live Within the past 12 months, did the food you bought not last and you didn't have the money to get more?: Never true Within the past 12 months, did you worry whether your food would run out before you got money to buy more?: Never true Do you have trouble paying for medicines?: No Do you have trouble getting transportation to medical appointments?: No Do you have trouble paying your heating and electricity bill?: No Do you have trouble taking care of your child, family member or friend?: No Do you have trouble with day-to-day activities such as bathing, preparing meals, shopping, managing finances, etc.?: No Are you currently unemployed and looking for a job?: No Are you interested in more education?: No Please select the resources that you would like help with: None Currently or been in a relationship where the following occur: no concerns reported THRIVE Score: 0 AUDIT C Alcohol Use Questionnaire (AUDIT-C) 1. How often do you have a drink containing alcohol?: Monthly or less 2. How many drinks containing alcohol do you have on a typical day when you are drinking?: 1 or 2 3. How often do you have six or more drinks on one occasion?: Never Total Score: 1 Score Reviewed/Action Taken: Yes TORSTEN-7 AMB Questionnaire TORSTEN-7 Date TORSTEN - 7 assessed: 10/19/23 Feeling nervous, anxious, or on edge: 0 = Not at all Not being able to stop or control worryin = Not at all Worrying too much about different things: 0 = Not at all Trouble relaxin = Not at all Being so restless that it is hard to sit still: 0 = Not at all Becoming easily annoyed or irritable: 0 = Not at all Feeling afraid as if something awful might happen: 0 = Not at all Total TORSTEN-7 score (0-4 normal; 5-9 mild; 10-14 moderate; 15-21 severe): 0 Source: Developed by Drs. Dung Lilly, Che Pryor, Gallito Rice and colleagues, with an educational ange from [employer]. TORSTEN-7 Assessment Billing TORSTEN-7 Assessment Tool: TORSTEN-7 Assessment 72457 Review of Systems Const Denies chills, Denies fatigue, Denies fever(s), Denies headache(s), Denies malaise and Denies weakness Eyes Denies blurry vision, Denies change in vision, Denies dry eyes, Denies irritation and Denies itchy eyes ENT Denies dysphagia, Denies dizziness, Denies otalgia, Denies headache(s), Denies nasal congestion, Denies neck pain, Denies odynophagia and Denies sore throat Card Denies chest pain, Denies rapid heart rate, Denies irregular heart rhythm, Denies palpitations and Denies dyspnea Resp Denies chest congestion, Denies cough, Denies dyspnea and Denies wheezing GI Denies abdominal pain, Denies bloating, Denies constipation, Denies dysphagia, Reports heartburn (increased lately), Denies diarrhea, Denies nausea, Denies odynophagia and Denies vomiting Denies hematuria, Denies difficulty urinating, Denies dysuria, Denies urinary frequency and Denies urinary urgency Musc Denies back pain, Denies arthralgias, Denies joint swelling, Denies muscle weakness and Denies neck pain Skin/Breast Details: (+) small keratotic lesion on the left upper cheek Denies change in pigmentation, Denies rash and Denies unusual bruising Neuro Denies dizziness, Denies headache(s), Denies paresthesias and Denies weakness Endo Denies fatigue and Denies palpitations Aller/Immun Denies itchy eyes and Denies wheezing Physical exam (Primary Care) Vital Signs: Last Vital Signs Pulse 100 10/19/23 15:42 BP 122/80 10/19/23 15:42 Pulse Ox 94 10/19/23 15:42 Oxygen Delivery Method Room Air 10/19/23 15:42 BMI result Body Mass Index 29.3 Tobacco/Smoking Status: Tobacco use Status Tobacco use date assessed 10/19/23 10/19/23 15:48 Patient Tobacco Use Status Never used Tobacco 10/19/23 15:48 e-Cigarette/Vaping Use Never Used 10/19/23 15:48 PHQ-9: PHQ-9 Score PHQ-9: Total score 0 10/19/23 16:22 Depression Screening Interpretation: Negative Thrive Assessment: Date of Thrive Assessment Date Thrive assessed 10/19/23 10/19/23 15:48 Currently or been in a relationship where the following occur: no concerns reported Const General: no acute distress, alert and awake Orientation/consciousness: patient oriented x3 HENMT Head: Yes normocephalic and Yes atraumatic Ears: external ears normal, TM's normal bilaterally and EAC's normal General nose exam: No nasal discharge present Face and sinus: Yes normal facial exam and Yes sinuses nontender Teeth and gingiva: dentition normal Throat: Yes posterior oropharynx normal and Yes tonsils normal (no TP congest ion) Eyes Eyelids: Yes eyelids normal Conjunctivae: conjunctivae normal Pupils: Equal, round and reactive pupils present EOM: EOMs intact bilaterally Neck Neck: Yes no lymphadenopathy and Yes supple Thyroid: Thyroid normal Resp Auscultation: clear to auscultation bilaterally, no rales and no wheezes Cardio Rate: regular rate Rhythm: regular rhythm Heart sounds: no murmurs GI Palpation (GI): Soft to palpation, nontender and No hepatosplenomegaly present Auscultation: normal bowel sounds General: Yes no CVA tenderness Back/Spine/Pelvis Back: no CVA tenderness Thoracic/Lumbar Spine: thoracic and lumbar spine normal to inspection Skin Other: (+) small and slightly raised hyperpigmented, keratotic lesion on the left upper cheek, just under the corner of the left eye Rashes: no rashes Neuro General: patient oriented x3, moves all extremities, no focal motor deficits and CN's II-XI intact bilaterally Cranial nerves: Yes Equal, round and reactive pupils present Cognition (Neuro): normal cognition Gait exam (Neuro): Normal gait present Extrem General: Yes no clubbing, cyanosis or edema Assessment and Plan Assessment & Plan (1) Annual physical exam: Code(s): Z00.00 - Encounter for general adult medical examination without abnormal findings Plan: Check labs He is up-to-date with his cancer screenings - is not due for repeat colonoscopy until 2029 (2) Mixed hyperlipidemia: Code(s): E78.2 - Mixed hyperlipidemia Plan: Reinforced low cholesterol diet Will have him recheck his fasting lipids for follow up He is reminded that his cholesterol numbers were still elevated when checked last year - LDL cholesterol was still at 146 mg/dl - goal is LDL cholesterol of at least <130 mg/dl Patient would like to continue with diet modification for now and avoid taking Rx as much as possible (3) Vitamin D deficiency: Code(s): E55.9 - Vitamin D deficiency, unspecified Plan: He was previously started on Vitamin D3 2000 units QD but he has not been taking this consistently and admits that he has not taken this at all in the past few months He is reminded that his Vitamin D level remained very low on his labs done last year Will recheck his Vitamin D level for now and see how it is (4) GERD (gastroesophageal reflux disease): Code(s): K21.9 - Gastro-esophageal reflux disease without esophagitis Qualifiers: Esophagitis presence: without esophagitis Qualified Code(s): K21.9 - Gastro-esophageal reflux disease without esophagitis Plan: Reinforced dietary restrictions Continue Prilosec 20 mg QD for now but as he continues to experience breakthrough symptoms despite Rx, will send him for an upper GI series for further evaluation (5) Keratotic lesion: Comment: on the left cheek, near and just under the corner of the left eye Code(s): L57.0 - Actinic keratosis Plan: Will refer him to dermatology for further evaluation and management (6) Hearing loss in right ear: Code(s): H91.91 - Unspecified hearing loss, right ear Qualifiers: Hearing loss type: unspecified Qualified Code(s): H91.91 - Unspecified hearing loss, right ear Plan: Currently uses a hearing aid in his right ear; hearing in his left ear is normal Follow up with Speech and Hearing as scheduled (7) Overweight (BMI 25.0-29.9): Code(s): E66.3 - Overweight Plan: Reinforced diet/exercise as tolerated/lose weight Plan Follow up in 6 months Orders: Orders Complete Blood Count Auto Diff 10/19/23 D64.9 - Anemia, unspecified, Z00.00 - Encounter for general adult medical examination without abnormal findings Comprehensive [place]. Panel Fast 10/19/23 E78.00 - Pure hypercholesterolemia, unspecified, Z00.00 - Encounter for general adult medical examination without abnormal findings Lipid Panel 10/19/23 E78.00 - Pure hypercholesterolemia, unspecified, Z00.00 - Encounter for general adult medical examination without abnormal findings TSH reflex Free T4 10/19/23 E78.00 - Pure hypercholesterolemia, unspecified, Z00.00 - Encounter for general adult medical examination without abnormal findings Vitamin D 25-OH Total 10/19/23 E55.9 - Vitamin D deficiency, unspecified, Z00.00 - Encounter for general adult medical examination without abnormal findings FL upper GI series 10/19/23 K21.9 - Gastro-esophageal reflux disease without esophagitis UA CC w/rflx Micro + Cult 10/19/23 R30.0 - Dysuria, Z00.00 - Encounter for general adult medical examination without abnormal findings Prostate Specific Antigen Scr 10/19/23 Z00.00 - Encounter for general adult medical examination without abnormal findings Referrals Dermatology Referral L57.0 - Actinic keratosis Coding Level of Care Code Est Pt Prev Care 40-64y(96647) Diagnoses Annual physical exam Z00.00 Mixed hyperlipidemia E78.2 Vitamin D deficiency E55.9 Gastroesophageal reflux disease without esophagitis K21.9 Esophagitis presence: without esophagitis Keratotic lesion L57.0 Hearing loss of right ear, unspecified hearing loss type H91.91 Hearing loss type: unspecified Overweight (BMI 25.0-29.9) E66.3 Additional Codes TORSTEN-7 Assessment Billing - TORSTEN-7 Assessment Tool: TORSTEN-7 Assessment 11683 ([id number])
== END 2023-10-19 16:32 | disposition home or self-care (01) ==
PROVIDERS: PCP Internal Medicine; Visit Provider Internal Medicine
DX: Z00.00 Encounter for general adult medical examination without abnormal findings (principal); E78.2 Mixed hyperlipidemia; E55.9 Vitamin D deficiency, unspecified; K21.9 Gastro-esophageal reflux disease without esophagitis; L57.0 Actinic keratosis; H91.91 Unspecified hearing loss, right ear; E66.3 Overweight
CPT/HCPCS: 99396

== ENCOUNTER 2023-10-28 08:45 | Outpatient (REF) | payer OTHER, SELFPAY ==
[2023-10-28 08:58] LABS: MANUAL DIFF FLAG NO
[2023-10-28 09:18] LABS: Basophils Percent Auto 0.6 % (0-2); Eosinophils Absolute Auto 0.3 X10*3/uL (0.0-0.4); Eosinophils Percent Auto 5.9 % (0-4); Hematocrit 52.7 % (42.0-52.0); Hemoglobin 17.7 g/dl (14.0-18.0); Imm Gran Abs Auto 0.01 X10*3/uL (0.00-0.03); Imm Gran Pct Auto 0.2 % (0.0-0.4); Lymphocytes Absolute Auto 1.3 X10*3/uL (1.2-4.9); Lymphocytes Percent Auto 23.9 % (20-40); Mean Corpuscular HGB Conc 33.6 g/dl (31.0-36.0); Mean Corpuscular Hemoglobin 28.9 pg (27.0-33.0); Mean Platelet Volume 11.6 fL (9.4-12.4); Monocytes Absolute Auto 0.5 X10*3/uL (0.1-1.2); Monocytes Percent Auto 8.7 % (2-11); Neutrophils Absolute Auto 3.3 x10*3/uL (2.0-8.3); Neutrophils Percent Auto 60.7 % (45-73); Platelet Count 203 X10*3/uL (160-400); Red Blood Count 6.13 X10*6/uL (4.60-5.80); Red Cell Distribution Width 13.9 % (11.0-16.0); White Blood Count 5.4 X10*3/uL (4.8-10.8)
[2023-10-28 10:14] LABS: Alanine Aminotransferase 43 U/L (0-40); Albumin Level 4.4 g/dL (3.5-5.0); Alkaline Phosphatase 66 U/L (39-117); Anion Gap 11 (12-20); Aspartate Amino Transferase 32 U/L (5-37); Bilirubin Total 1.4 mg/dL (0.0-1.0); Blood Urea Nitrogen 22 mg/dL (9-16); Calcium 9.6 mg/dL (8.4-10.2); Carbon Dioxide 28 mmol/L (22-29); Chloride 103 mmol/L (96-108); Cholesterol 242 mg/dL (<200); Estimated Glomerular Filt Rate 59; Glucose Fasting 98 mg/dL (60-99); HDL Cholesterol 37 mg/dL (>40); LDL Cholesterol Calculated 169 mg/dL (<100); Potassium 4.4 mmol/L (3.3-5.1); Sodium 138 mmol/L (135-145); Total Protein 7.6 g/dL (6.5-8.0); Triglycerides 184 mg/dL (<150)
[2023-10-28 10:30] LABS: Prostate Specific Antigen Scr 0.83 ng/mL (<0.05-4.0)
[2023-10-28 10:32] LABS: TSH reflex Free T4 2.17 uIU/mL (0.32-4.0); Vitamin D 25-OH Total 20.7 ng/mL (>30)
[2023-10-28 10:35] LABS: Appearance Urine Clear; Color Urine Yellow; Glucose Urine UA Negative (Negative); Leukocyte Esterase Urine Negative (Negative); Nitrite Urine Negative (Negative); PH 7.5 (5.0-9.0); Urine Blood Negative (Negative); Urine Ketones Negative (Negative); Urine Protein Negative (Neg-Trace)
== END 2023-10-28 08:46 | disposition home or self-care (01) ==
LOC: HO.LAB 08:45
PROVIDERS: PCP Internal Medicine; Visit Provider Internal Medicine
DX: Z00.00 Encounter for general adult medical examination without abnormal findings (principal); Z12.5 Encounter for screening for malignant neoplasm of prostate; E78.00 Pure hypercholesterolemia, unspecified; D64.9 Anemia, unspecified; E55.9 Vitamin D deficiency, unspecified; R30.0 Dysuria
CPT/HCPCS: 36415; 80053; 80061; 81003; 82306; 84153; 84443; 85025

== ENCOUNTER 2024-02-06 08:01 | Outpatient (REF) | payer OTHER, SELFPAY ==
--- NOTE | ~2024-02-06 | FL_ITS ---
EXAMINATION: XR FLUOROSCOPY UPPER GI WITH AIR CLINICAL INFORMATION: Reflux COMPARISON: None TECHNIQUE: Fluoroscopic air contrast upper GI examination was performed utilizing standard techniques with thin and thick barium and effervescent granules. Numerous spot images were obtained. FINDINGS: Dual and single contrast images of the esophagus demonstrate normal caliber, contour, and mucosal pattern. No evidence of stricture, mass, or ulcerations identified. Esophageal peristalsis is moderately disorganized. A small type 1 hiatal hernia is present. Mild gastroesophageal reflux is seen in the distal esophagus. Dual contrast and single contrast images of the stomach demonstrated a normal contour. The gastric rugal folds are mildly thickened appearance. No masses or ulcerations are seen. Contrast freely passed into the gastric antrum and duodenal bulb without delay. Single and air-contrast images of the duodenal bulb demonstrate no abnormality. The duodenal sweep has a normal appearance, course, and mucosal fold appearance. The imaged proximal jejunum has a normal fold pattern and caliber. FLUOROSCOPY TIME: 3 minutes 54 seconds Number of Spot Images: 7 Number of Cine: 14 DOSE AREA PRODUCT: 2847 uGy-m2 (microgray-meter squared) FL/FL upper GI w air IMPRESSION: 1. Moderately disorganized esophageal peristalsis. 2. Small type I hiatal hernia. 3. Mild gastroesophageal reflux. 4. Mildly thickened gastric rugal folds, which suggests gastritis. This procedure was performed by Giuseppe Avina PA-C, and supervised by Dr. Archibald
== END 2024-02-06 08:02 | disposition home or self-care (01) ==
LOC: HO.XRAY 08:01
PROVIDERS: PCP Internal Medicine; Visit Provider Internal Medicine
DX: K21.9 Gastro-esophageal reflux disease without esophagitis (principal)
CPT/HCPCS: 74246

== ENCOUNTER → 2024-02-06 08:02 | Outpatient (BNV) | payer OTHER, SELFPAY | PROVIDERS: PCP Internal Medicine; Visit Provider Physician Assistant Surgical | DX: K21.9 Gastro-esophageal reflux disease without esophagitis (principal) | CPT/HCPCS: 74246 ==

== ENCOUNTER 2024-04-30 14:10 | Outpatient (AMB) | payer OTHER, SELFPAY ==
[2024-04-30 14:12] VITALS: BP 124/82; PULSE 69; O2SAT 96; BMI 28.8
--- NOTE | 2024-04-30 14:12 | A.OFFPC_ITS ---
Vital Signs 04/30/24 14:12 Height 5 ft 10 in Weight 200 lb 8 oz BMI 28.8 BP 124/82 Blood Pressure Location Lt brachial Position Sitting Pulse 69 Pulse Source Pulse Oximeter Pulse Oximetry (%) 96 Oxygen Delivery Method Room Air Intake Visit Reasons: 6 months f/u Tax Revenue Officer Required: No Accompanied by: Self / Same As Patient Allergies No Known Allergies Allergy (Verified 04/30/24 14:54) Medication List - Last Reconciled 04/30/24 by Christo Harrison MD omeprazole magnesium (Prilosec OTC) 20 mg PO DAILY Tobacco use date assessed: 04/30/24 Dental Screening Dental Screen Date: 04/30/24 Did you have a dental visit in the last 12 months?: Yes Did you have a dental problem in the last 6 months where you did not have access to dental care?: No Was dental information given to patient?: Patient has dentist [facility] Medical History Vitamin D deficiency Mixed hyperlipidemia Overweight (BMI 25.0-29.9) Diverticulosis Hx of hearing loss GERD (gastroesophageal reflux disease) Elevated cholesterol Surgical History Hx of colonoscopy History of urologic surgery Family History Father CVD (cardiovascular disease) Mother Hypertension Social History Housing: House Alcohol intake: current Alcohol intake frequency: holidays/special occasions only Patient Tobacco Use Status: Never used Tobacco e-Cigarette/Vaping Use: Never Used Current occupational status: employed Cognitive needs: No Hearing needs: No Vision needs: Yes Questionnaire PHQ-9 Over the last 2 weeks, how often have you been bothered by any of the following problems? 1. Little interest or pleasure in doing things: not at all 2. Feeling down, depressed, or hopeless: not at all 3. Trouble falling or staying asleep, or sleeping too much: not at all 4. Feeling tired or having little energy: not at all 5. Poor appetite or overeating: not at all 6. Feeling bad about yourself - or that you are a failure or have let yourself or your family down: not at all 7. Trouble concentrating on things, such as reading the newspaper or watching television: not at all 8. Moving or speaking so slowly that other people could have noticed. Or the opposite - being so fidgety or restless that you have been moving around a lot more than usual: not at all 9. Thoughts that you would be better off or of hurting yourself in some way: not at all Total score: 0 Depression Screening Interpretation: Negative Depression Screening Done: Yes 85367 - PHQ-9 Billing: Yes Source: Developed by Drs. Dung Lilly, Che Pryor, Gallito Rice and colleagues, with an educational ange from [employer]. Thrive Questionnaire Date Thrive assessed: 04/30/24 I am a: Patient What is your living situation today?: I have a steady place to live Within the past 12 months, did the food you bought not last and you didn't have the money to get more?: Never true Within the past 12 months, did you worry whether your food would run out before you got money to buy more?: Never true Do you have trouble paying for medicines?: No Do you have trouble getting transportation to medical appointments?: No Do you have trouble paying your heating and electricity bill?: No Do you have trouble taking care of your child, family member or friend?: No Do you have trouble with day-to-day activities such as bathing, preparing meals, shopping, managing finances, etc.?: No Are you currently unemployed and looking for a job?: No Are you interested in more education?: No Please select the resources that you would like help with: None Currently or been in a relationship where the following occur: No concerns reported THRIVE Score: 0 AUDIT C Alcohol Use Questionnaire (AUDIT-C) 1. How often do you have a drink containing alcohol?: Monthly or less 2. How many drinks containing alcohol do you have on a typical day when you are drinking?: 1 or 2 3. How often do you have six or more drinks on one occasion?: Never Total Score: 1 Score Reviewed/Action Taken: Yes TORSTEN-7 AMB Questionnaire TORSTEN-7 Date TORSTEN - 7 assessed: 04/30/24 Feeling nervous, anxious, or on edge: 0 = Not at all Not being able to stop or control worryin = Not at all Worrying too much about different things: 0 = Not at all Trouble relaxin = Not at all Being so restless that it is hard to sit still: 0 = Not at all Becoming easily annoyed or irritable: 0 = Not at all Feeling afraid as if something awful might happen: 0 = Not at all Total TORSTEN-7 score (0-4 normal; 5-9 mild; 10-14 moderate; 15-21 severe): 0 Source: Developed by Drs. Dung Lilly, Che Pryor, Gallito Rice and colleagues, with an educational ange from [employer]. TORSTEN-7 Assessment Billing TORSTEN-7 Assessment Tool: TORSTEN-7 Assessment 95728 Physical exam (Primary Care) Vital Signs: Last Vital Signs Pulse 69 04/30/24 14:12 BP 124/82 04/30/24 14:12 Pulse Ox 96 04/30/24 14:12 Oxygen Delivery Method Room Air 04/30/24 14:12 BMI result Body Mass Index 28.8 Tobacco/Smoking Status: Tobacco use Status Tobacco use date assessed 04/30/24 04/30/24 14:14 Patient Tobacco Use Status Never used Tobacco 04/30/24 14:14 e-Cigarette/Vaping Use Never Used 04/30/24 14:14 PHQ-9: PHQ-9 Score PHQ-9: Total score 0 04/30/24 14:21 Depression Screening Interpretation: Negative Thrive Assessment: Date of Thrive Assessment Date Thrive assessed 04/30/24 04/30/24 14:14 Currently or been in a relationship where the following occur: No concerns reported Office Procedures Flu Questionnaire Does the patient have a severe egg allergy?: No Does the patient have severe life threatening allergies?: No Does the patient have a fever or illness today?: No Has the patient ever had Guillain-[place] Syndrome?: No Has the patient ever had any past reaction to a flu shot?: No Immunizations Fluarix Triv [id number] (PF) 45 mcg (15 mcg x 3)/0.5 mL IM syringe Performing Provider: Christo Harrison MD [facility] Administered by: SAMY Young on 04/30/24 14:27 Dose Route Admin Location Dispensed Lot Number Expiration Date NDC Director Employee Communications 0.5 mL IM Right Deltoid 0.5 mL [id number] 01/07/25 91495-950-09 [employer] VIS Given Date VIS Provided VIS Publication Date 04/30/24 Single Vaccine 21 Eligibility Eligibility Date Funding Source Not [facility] Eligible 04/30/24 Private Results Reviewed Results Reviewed: Laboratory Tests 07/30/22 10/28/23 10/28/23 08:42 08:55 08:56 WBC 5.4 Hgb 17.7 Hct 52.7 H Plt Count 203 Sodium 138 Potassium 4.4 Creatinine 1.27 Estimated GFR 59 Fasting Glucose 98 Calcium 9.6 Total Bilirubin 1.4 H AST 32 ALT 43 H Triglycerides 184 H Cholesterol 225 242 H LDL Cholesterol, Calc 146 169 H HDL Cholesterol 37 L PSA Screen 0.83 25-OH Vitamin D Total 20.7 L TSH 2.17 Ur Specific [place] 1.010 Urine Protein Negative Urine Glucose (UA) Negative Urine Blood Negative Urine Nitrite Negative Ur Leukocyte Esterase Negative Coding Additional Codes TORSTEN-7 Assessment Billing - TORSTEN-7 Assessment Tool: TORSTEN-7 Assessment 20615 ([id number]) Assessment & Plan Assessment & Plan Orders: Orders Complete Blood Count Auto Diff 6 Months D64.9 - Anemia, unspecified, Z00.00 - Encounter for general adult medical examination without abnormal findings Comprehensive [place]. Panel Fast 6 Months E78.00 - Pure hypercholesterolemia, unspecified, Z00.00 - Encounter for general adult medical examination without abnormal findings UA CC w/rflx Micro + Cult 6 Months R30.0 - Dysuria, Z00.00 - Encounter for general adult medical examination without abnormal findings Microalbumin, Random (w Creat) 6 Months E11.9 - Type 2 diabetes mellitus without complications, Z00.00 - Encounter for general adult medical examination without abnormal findings Influenza [id number] Immunization Today Z23 - Encounter for immunization Lipid Panel 6 Months E78.00 - Pure hypercholesterolemia, unspecified, Z00.00 - Encounter for general adult medical examination without abnormal findings TSH reflex Free T4 6 Months E78.00 - Pure hypercholesterolemia, unspecified, Z00.00 - Encounter for general adult medical examination without abnormal findings Vitamin D 25-OH Total 6 Months E55.9 - Vitamin D deficiency, unspecified, Z00.00 - Encounter for general adult medical examination without abnormal findings
== END 2024-04-30 15:04 | disposition home or self-care (01) ==
PROVIDERS: PCP Internal Medicine; Visit Provider Internal Medicine
DX: Z23 Encounter for immunization (principal)

== ENCOUNTER → 2024-04-30 14:10 | Outpatient (BNVA) | payer OTHER, SELFPAY | PROVIDERS: PCP Internal Medicine; Visit Provider Internal Medicine | DX: E78.2 Mixed hyperlipidemia (principal); E55.9 Vitamin D deficiency, unspecified; K21.9 Gastro-esophageal reflux disease without esophagitis; H91.91 Unspecified hearing loss, right ear; E66.3 Overweight; Z23 Encounter for immunization | CPT/HCPCS: 90471; 90656; 96127; 99212 ==

== ENCOUNTER 2024-10-31 06:25 | Outpatient (REF) | payer OTHER, SELFPAY ==
[2024-10-31 06:39] LABS: MANUAL DIFF FLAG NO
[2024-10-31 07:23] LABS: Basophils Percent Auto 0.5 % (0-2); Eosinophils Absolute Auto 0.2 X10*3/uL (0.0-0.4); Eosinophils Percent Auto 4.3 % (0-4); Hematocrit 50.7 % (42.0-52.0); Hemoglobin 16.7 g/dl (14.0-18.0); Imm Gran Abs Auto 0.01 X10*3/uL (0.00-0.03); Imm Gran Pct Auto 0.2 % (0.0-0.4); Lymphocytes Absolute Auto 1.2 X10*3/uL (1.2-4.9); Lymphocytes Percent Auto 20.8 % (20-40); Mean Corpuscular HGB Conc 32.9 g/dl (31.0-36.0); Mean Corpuscular Hemoglobin 28.1 pg (27.0-33.0); Mean Corpuscular Volume 85.4 fL (80.0-98.0); Mean Platelet Volume 11.6 fL (9.4-12.4); Monocytes Absolute Auto 0.7 X10*3/uL (0.1-1.2); Monocytes Percent Auto 12.1 % (2-11); Neutrophils Absolute Auto 3.4 x10*3/uL (2.0-8.3); Neutrophils Percent Auto 62.1 % (45-73); Platelet Count 200 X10*3/uL (160-400); Red Blood Count 5.94 X10*6/uL (4.60-5.80); Red Cell Distribution Width 13.5 % (11.0-16.0); White Blood Count 5.5 X10*3/uL (4.8-10.8)
[2024-10-31 07:59] LABS: Alanine Aminotransferase 32 U/L (0-40); Albumin Level 4.1 g/dL (3.5-5.0); Alkaline Phosphatase 81 U/L (39-117); Anion Gap 12 (12-20); Aspartate Amino Transferase 27 U/L (5-37); Bilirubin Total 0.8 mg/dL (0.0-1.0); Blood Urea Nitrogen 25 mg/dL (9-16); Calcium 9.3 mg/dL (8.4-10.2); Carbon Dioxide 27 mmol/L (22-29); Chloride 105 mmol/L (96-108); Cholesterol 221 mg/dL (<200); Estimated Glomerular Filt Rate > 60; Glucose Fasting 98 mg/dL (60-99); HDL Cholesterol 33 mg/dL (>40); LDL Cholesterol Calculated 149 mg/dL (<100); Potassium 4.5 mmol/L (3.3-5.1); Sodium 139 mmol/L (135-145); Total Protein 7.3 g/dL (6.5-8.0); Triglycerides 196 mg/dL (<150)
[2024-10-31 08:16] LABS: TSH reflex Free T4 3.06 uIU/mL (0.32-4.0); Vitamin D 25-OH Total 24.2 ng/mL (>30)
[2024-10-31 08:47] LABS: Creatinine Urine 200.29 mg/dL; Microalbum/Creatinine Ratio Ur 6.9 ug/mg cr (<30)
[2024-10-31 08:54] LABS: Appearance Urine Clear; Color Urine Yellow; Glucose Urine UA Negative (Negative); Leukocyte Esterase Urine Negative (Negative); Nitrite Urine Negative (Negative); PH 5.5 (5.0-9.0); Specific Gravity - Urine 1.025 (1.005-1.025); Urine Blood Negative (Negative); Urine Ketones Negative (Negative); Urine Protein Negative (Neg-Trace)
== END 2024-10-31 06:26 | disposition home or self-care (01) ==
LOC: HO.LAB 06:25
PROVIDERS: PCP Internal Medicine; Visit Provider Internal Medicine
DX: Z00.00 Encounter for general adult medical examination without abnormal findings (principal)
CPT/HCPCS: 36415; 80053; 80061; 81003; 82043; 82306; 82570; 84443; 85025

== ENCOUNTER 2024-11-01 09:48 | Outpatient (AMB) | payer OTHER, SELFPAY ==
[2024-11-01 10:19] VITALS: BP 110/80; PULSE 76; O2SAT 96; BMI 28.3
--- NOTE | 2024-11-01 10:19 | A.OFFPC_ITS ---
Vital Signs 11/01/24 10:19 Height 5 ft 10 in Weight 197 lb BMI 28.3 BP 110/80 Blood Pressure Location Lt brachial Position Sitting Pulse 76 Pulse Source Pulse Oximeter Pulse Oximetry (%) 96 Oxygen Delivery Method Room Air Intake Visit Reasons: Annual Exam Designer/Writer Required: No Accompanied by: Self / Same As Patient Allergies No Known Allergies Allergy (Verified 11/01/24 10:48) Medication List - Last Reconciled 11/01/24 by Christo Harrison MD omeprazole magnesium (Prilosec OTC) 20 mg PO DAILY Tobacco use date assessed: 11/01/24 Dental Screening Dental Screen Date: 04/30/24 Did you have a dental visit in the last 12 months?: Yes Did you have a dental problem in the last 6 months where you did not have access to dental care?: No Was dental information given to patient?: Patient has dentist HPI Annual Exam HPI Details Patient comes in today for his annual physical examination States that he feels okay He denies any headaches or dizziness Denies any chest pains, no SOB No nausea/vomiting, no abdominal pain No change in bowel habits noted Denies any acute urinary symptoms He had his follow up labs done yesterday - to discuss his results He had his screening colonoscopy last done back in 05/2020 and his next colonoscopy will be due in 10 years (2029) [facility] Medical History (Updated 11/01/24 @ 10:58 by Christo Harrison MD) Vitamin D deficiency Mixed hyperlipidemia Overweight (BMI 25.0-29.9) Diverticulosis Hx of hearing loss GERD (gastroesophageal reflux disease) Surgical History Hx of colonoscopy History of urologic surgery Family History Father CVD (cardiovascular disease) Mother Hypertension Social History Housing: House Alcohol intake: current Alcohol intake frequency: holidays/special occasions only Patient Tobacco Use Status: Never used Tobacco e-Cigarette/Vaping Use: Never Used Current occupational status: employed Cognitive needs: No Hearing needs: No Vision needs: Yes Questionnaire PHQ-9 Over the last 2 weeks, how often have you been bothered by any of the following problems? 1. Little interest or pleasure in doing things: not at all 2. Feeling down, depressed, or hopeless: not at all 3. Trouble falling or staying asleep, or sleeping too much: not at all 4. Feeling tired or having little energy: not at all 5. Poor appetite or overeating: not at all 6. Feeling bad about yourself - or that you are a failure or have let yourself or your family down: not at all 7. Trouble concentrating on things, such as reading the newspaper or watching television: not at all 8. Moving or speaking so slowly that other people could have noticed. Or the opposite - being so fidgety or restless that you have been moving around a lot more than usual: not at all 9. Thoughts that you would be better off or of hurting yourself in some way: not at all Total score: 0 Depression Screening Interpretation: Negative Depression Screening Done: Yes 21379 - PHQ-9 Billing: Yes Source: Developed by Drs. Dung Lilly, Che Pryor, Gallito Rice and colleagues, with an educational ange from [employer]. Thrive Questionnaire Date Thrive assessed: 11/01/24 I am a: Patient What is your living situation today?: I have a steady place to live Within the past 12 months, did the food you bought not last and you didn't have the money to get more?: Never true Within the past 12 months, did you worry whether your food would run out before you got money to buy more?: Never true Do you have trouble paying for medicines?: No Do you have trouble getting transportation to medical appointments?: No Do you have trouble paying your heating and electricity bill?: No Do you have trouble taking care of your child, family member or friend?: No Do you have trouble with day-to-day activities such as bathing, preparing meals, shopping, managing finances, etc.?: No Are you currently unemployed and looking for a job?: No Are you interested in more education?: No Please select the resources that you would like help with: None Currently or been in a relationship where the following occur: No concerns reported THRIVE Score: 0 AUDIT C Alcohol Use Questionnaire (AUDIT-C) 1. How often do you have a drink containing alcohol?: Monthly or less 2. How many drinks containing alcohol do you have on a typical day when you are drinking?: 1 or 2 3. How often do you have six or more drinks on one occasion?: Never Total Score: 1 Score Reviewed/Action Taken: Yes TORSTEN-7 AMB Questionnaire TORSTEN-7 Date TORSTEN - 7 assessed: 11/01/24 Feeling nervous, anxious, or on edge: 0 = Not at all Not being able to stop or control worryin = Not at all Worrying too much about different things: 0 = Not at all Trouble relaxin = Not at all Being so restless that it is hard to sit still: 0 = Not at all Becoming easily annoyed or irritable: 0 = Not at all Feeling afraid as if something awful might happen: 0 = Not at all Total TORSTEN-7 score (0-4 normal; 5-9 mild; 10-14 moderate; 15-21 severe): 0 Source: Developed by Drs. Dung Lilly, Che Pryor, Gallito Rice and colleagues, with an educational ange from [employer]. TORSTEN-7 Assessment Billing TORSTEN-7 Assessment Tool: TORSTEN-7 Assessment 49602 Review of Systems Const Denies chills, Denies fatigue, Denies fever(s), Denies headache(s), Denies malaise and Denies weakness Eyes Denies blurry vision, Denies change in vision, Denies irritation and Denies itchy eyes ENT Denies dysphagia, Denies dizziness, Denies otalgia, Denies headache(s), Denies nasal congestion, Denies neck pain, Denies odynophagia and Denies sore throat Card Denies rapid heart rate, Denies irregular heart rhythm, Denies palpitations and Denies dyspnea Resp Denies chest congestion, Denies cough, Denies dyspnea and Denies wheezing GI Denies abdominal pain, Denies bloating, Denies constipation, Denies dysphagia, Denies heartburn, Denies diarrhea, Denies nausea, Denies odynophagia and Denies vomiting Denies hematuria, Denies difficulty urinating, Denies dysuria, Denies urinary frequency and Denies urinary urgency Musc Denies back pain, Denies arthralgias, Denies joint swelling, Denies muscle weakness and Denies neck pain Skin/Breast Denies change in pigmentation, Denies lesions, Denies rash and Denies unusual bruising Neuro Denies dizziness, Denies headache(s), Denies paresthesias and Denies weakness Endo Denies fatigue and Denies palpitations Aller/Immun Denies itchy eyes and Denies wheezing Physical exam (Primary Care) Vital Signs: Last Vital Signs Pulse 76 11/01/24 10:19 BP 110/80 11/01/24 10:19 Pulse Ox 96 11/01/24 10:19 Oxygen Delivery Method Room Air 11/01/24 10:19 BMI result Body Mass Index 28.3 Tobacco/Smoking Status: Tobacco use Status Tobacco use date assessed 11/01/24 11/01/24 10:24 Patient Tobacco Use Status Never used Tobacco 11/01/24 10:24 e-Cigarette/Vaping Use Never Used 11/01/24 10:24 PHQ-9: PHQ-9 Score PHQ-9: Total score 0 11/01/24 11:00 Depression Screening Interpretation: Negative Thrive Assessment: Date of Thrive Assessment Date Thrive assessed 11/01/24 11/01/24 10:24 Currently or been in a relationship where the following occur: No concerns reported Const General: no acute distress, alert and awake Orientation/consciousness: patient oriented x3 HENMT Head: Yes normocephalic and Yes atraumatic Ears: external ears normal, TM's normal bilaterally and EAC's normal General nose exam: No nasal discharge present Face and sinus: Yes normal facial exam and Yes sinuses nontender Teeth and gingiva: dentition normal Throat: Yes posterior oropharynx normal and Yes tonsils normal (no TP congestion) Eyes Eyelids: Yes eyelids normal Conjunctivae: conjunctivae normal Pupils: Equal, round and reactive pupils present EOM: EOMs intact bilaterally Neck Neck: Yes no lymphadenopathy and Yes supple Thyroid: Thyroid normal Resp Auscultation: clear to auscultation bilaterally, no rales and no wheezes Cardio Rate: regular rate Rhythm: regular rhythm Heart sounds: no murmurs GI Palpation (GI): Soft to palpation, nontender and No hepatosplenomegaly present Auscultation: normal bowel sounds General: Yes no CVA tenderness Back/Spine/Pelvis Back: no CVA tenderness Thoracic/Lumbar Spine: thoracic and lumbar spine normal to inspection Skin Lesions: no lesions Rashes: no rashes Neuro General: patient oriented x3, moves all extremities, no focal motor deficits and CN's II-XI intact bilaterally Cranial nerves: Yes Equal, round and reactive pupils present Cognition (Neuro): normal cognition Gait exam (Neuro): Normal gait present Extrem General: Yes no clubbing, cyanosis or edema Results Reviewed Results Reviewed: Laboratory Tests 10/28/23 10/31/24 10/31/24 08:56 06:35 06:38 WBC 5.5 Hgb 16.7 Hct 50.7 Plt Count 200 Sodium 139 Potassium 4.5 Creatinine 1.24 Estimated GFR > 60 Fasting Glucose 98 Calcium 9.3 AST 27 ALT 32 Triglycerides 184 H 196 H Cholesterol 242 H 221 H LDL Cholesterol, Calc 169 H 149 H HDL Cholesterol 37 L 33 L 25-OH Vitamin D Total 24.2 L TSH 3.06 Ur Specific [place] 1.025 Urine Protein Negative Urine Glucose (UA) Negative Urine Blood Negative Urine Nitrite Negative Ur Leukocyte Esterase Negative Microalb/Creat Ratio 6.9 Coding Level of Care Code Est Pt Prev Care 40-64y(45782) Diagnoses Annual physical exam Z00.00 Mixed hyperlipidemia E78.2 Vitamin D deficiency E55.9 Gastroesophageal reflux disease without esophagitis K21.9 Esophagitis presence: without esophagitis Hearing loss of right ear, unspecified hearing loss type H91.91 Hearing loss type: unspecified Overweight (BMI 25.0-29.9) E66.3 Additional Codes TORSTEN-7 Assessment Billing - TORSTEN-7 Assessment Tool: TORSTEN-7 Assessment [id number] ([id number]) PHQ-9 - 02377 - PHQ-9 Billing: Yes ([id number]) Assessment & Plan Assessment & Plan (1) Annual physical exam: Code(s): Z00.00 - Encounter for general adult medical examination without abnormal findings Category: Medical Plan: Results of his labs done yesterday reviewed and discussed with patient He had his screening colonoscopy last done back in 05/2020 (normal) and his next colonoscopy will be due in 10 years (2030) (2) Mixed hyperlipidemia: Code(s): E78.2 - Mixed hyperlipidemia Category: Medical Plan: Patient is advised that his cholesterol levels are still elevated but have improved slightly from previous, with his total cholesterol now at 221 mg/dL and LDL cholesterol at 149 mg/dL Reinforced low-cholesterol diet Patient would like to continue with diet modification for now and still wishes to avoid taking Rx as much as possible but is agreeable to taking some Rx of his cholesterol numbers do not improve further over the next few months Will have him recheck his labs and fasting lipids in 6 months for follow up (3) Vitamin D deficiency: Code(s): E55.9 - Vitamin D deficiency, unspecified Category: Medical Plan: Continue Vitamin D3 2000 units QD Patient is advised that his Vitamin-D level is still low on his recent labs and he should take his Vitamin D more consistently (4) GERD (gastroesophageal reflux disease): Code(s): K21.9 - Gastro-esophageal reflux disease without esophagitis Category: Medical Qualifiers: Esophagitis presence: without esophagitis Qualified Code(s): K21.9 - Gastro-esophageal reflux disease without esophagitis Plan: Upper GI series done in late January 2024 revealed (+) moderately disorganized esophageal peristalsis, with a small type I hiatal hernia There is (+) mild gastroesophageal reflux noted and (+) mildly thickened gastric rugal folds, which suggests gastritis Dietary restrictions reinforced Continue Omeprazole 20 mg QD If his GI symptoms persist despite Rx, will need to see gastroenterology for further evaluation and consideration for EGD (5) Hearing loss in right ear: Code(s): H91.91 - Unspecified hearing loss, right ear Category: Medical Qualifiers: Hearing loss type: unspecified Qualified Code(s): H91.91 - Unspecified hearing loss, right ear Plan: Patient currently uses a hearing aid in his right ear; hearing in his left ear is normal Follow up with Speech and Hearing as scheduled (6) Overweight (BMI 25.0-29.9): Code(s): E66.3 - Overweight Category: Medical Plan: Reinforced diet/exercise as tolerated/lose weight Plan Follow up in 6 months Orders: Orders Lipid Panel 6 Months E78.00 - Pure hypercholesterolemia, unspecified Comprehensive [place]. Panel Fast 6 Months E78.00 - Pure hypercholesterolemia, unspecified Vitamin D 25-OH Total 6 Months E55.9 - Vitamin D deficiency, unspecified
--- OUTSIDE RECORDS SUMMARY | 2024-11-01 10:58 | XMS_ITS | Continuity of Care Document ---
Author Name [facility] Organization [facility] Care Team Providers Care Dental Technologist Name Role Phone [facility] Unavailable Unavailable Problems Combined list of problems from Department of Defense and Veterans Affairs facilities. It does not include entries that were removed or entered in error. Problem Status Onset Date Problem Type Date of Resolution Comme nts Source EXAM, FORMAL OCCUPATIONAL HEALTH PROGRAM INCLUDING HEARING CONSERVATION PROGRAM, PERIODIC FOR CONTINUED SURVEILLANCE FOR OCCUPATIONAL WORKPLACE EXPOSURE Active Condition DoD Immunizations Combined list of available immunizations from the Department of Defense and Veterans Affairs facilities. Immunization Series Date Given Administered By Site Reaction Lot Number CVX Code Drug Insulation Power Unit Tender Status Comments Source COVID Vaccine Moderna 2020 TRS 207 complet ed COVID Vaccine Moderna 06/17/21 Given Ambulat ory Pharmac y COVID-19, mRNA, LNP-S, PF, 100 mcg or 50 mcg dose 2020 INDARAPU, Moderna US, Inc. (MOD) Not Given COVID-19, mRNA, LNP-S, PF, 100 mcg or 50 mcg dose DoD SARS-COV-2 (COVID-19) vaccine, mRNA, spike protein, LNP, preservative free, 100 mcg or 50 mcg dose 0 2020 Unknown, Provider TRS 207 Moderna [employer] Inc[employer] (MOD) complet ed SARS-COV- 2 (COVID-19 ) vaccine, mRNA, spike protein, LNP, preservat gerardo free, 100 mcg or 50 mcg dose DoD COVID Vaccine Pfizer 2020 TRS 208 PFIZER complet ed COVID Vaccine Pfizer 05/23/21 Given Ambulat ory Pharmac y COVID-19, mRNA, LNP-S, PF, 30 mcg/0.3 mL dose 2020 [employer] [place] (PFR) Not Given COVID-19, mRNA, LNP-S, PF, 30 mcg/0.3 mL dose DoD SARS-COV-2 (COVID-19) vaccine, mRNA, spike protein, LNP, preservative free, 30 mcg/0.3mL dose 0 2020 Unknown, Provider TRS 208 Pfizer, Inc (PFR) complet ed SARS-COV- 2 (COVID-19 ) vaccine, mRNA, spike protein, LNP, preservat gerardo free, 30 mcg/0.3mL dose DoD influenza, injectable, quadrivalent- pf 2020 [id number] 150 [employer] [place] complet ed influenza , injectabl e, quadrival ent-pf 04/02/21 Given Ambulat ory Pharmac y Influenza, injectable, quadrivalent, preservative free 1 2020 [id number] 150 [employer] (SKB) complet ed Influenza , injectabl e, quadrival ent, preservat gerardo free DoD COVID Vaccine Moderna 2020 [id number] complet ed COVID Vaccine Moderna 09/26/20 Given Ambulat ory Pharmac y SARS-COV-2 (COVID-19) vaccine, mRNA, spike protein, LNP, preservative free, 100 mcg or 50 mcg dose 2 2020 [id number] 207 Moderna [employer] Inc. (MOD) complet ed SARS-COV- 2 (COVID-19 ) vaccine, mRNA, spike protein, LNP, preservat gerardo free, 100 mcg or 50 mcg dose DoD COVID Vaccine Moderna 2020 [id number] complet ed COVID Vaccine Moderna 08/22/20 Given Ambulat ory Pharmac y SARS-COV-2 (COVID-19) vaccine, mRNA, spike protein, LNP, preservative free, 100 mcg or 50 mcg dose 1 2020 [id number] 207 Moderna [employer] Inc[employer] (MOD) complet ed SARS-COV- 2 (COVID-19 ) vaccine, mRNA, spike protein, LNP, preservat gerardo free, 100 mcg or 50 mcg dose DoD influenza virus vaccine, inactivated 2019 [id number] 88 Seqirus complet ed influenza virus vaccine, inactivat ed 04/23/20 Given Ambulat ory Pharmac y Influenza, injectable, Madin [place] Canine Kidney, quadrivalent with preservative 1 2019 [id number] 186 Seqirus (SEQ) comple t ed Influenza , injectabl e, Madin Aura Canine Kidney, quadrival ent with preservat gerardo DoD influenza, injectable, quadrivalent- pf 2018 [id number] 150 Seqirus complet ed influenza , injectabl e, quadrival ent-pf 04/15/19 Given Ambulat ory Pharmac y Influenza, injectable, quadrivalent, preservative free 22 2018 [id number] 150 Seqirus (SEQ) complet ed Influenza , injectabl e, quadrival ent, preservat gerardo free DoD influenza, injectable, quadrivalent 2017 [id number] 158 Seqirus complet ed influenza , injectabl e, quadrival ent 05/03/18 Given Ambulat ory Pharmac y influenza, injectable, quadrivalent, contains preservative 21 2017 [id number] 158 Seqirus (SEQ) comple t ed influenza , injectabl e, quadrival ent, contains preservat gerardo DoD typhoid Vi capsular polysaccharid e vac 2017 [id number] 101 sanofi pasteur complet ed typhoid Vi capsular polysacch aride vac 08/25/17 Given Ambulat ory Pharmac y measles/mumps /rubella virus vaccine 2017 [id number] 03 Merck & Company Inc complet ed measles/m umps/rube lla virus vaccine 08/25/17 Given Ambulat ory Pharmac y meningococcal A,C,Y,W-135 (MCV4P) 2017 [id number] 114 sanofi pasteur complet ed meningoco ccal A,C,Y,W-1 35 (MCV4P) 08/25/17 Given Ambulat ory Pharmac y measles, mumps and rubella virus vaccine 1 2017 [id number] 03 Merck (MSD) complet ed measles, mumps and rubella virus vaccine DoD typhoid Vi capsular polysaccharid e vaccine 4 2017 [id number] 101 Sanofi Pasteur (PMC) complet ed typhoid Vi capsular polysacch aride vaccine DoD meningococcal polysaccharid e (groups A, C, Y and W-135) diphtheria toxoid conjugate vaccine (MCV4P) 3 2017 [id number] 114 Sanofi Pasteur (PMC) complet ed meningoco ccal polysacch aride (groups A, C, Y and W-135) diphtheri a toxoid conjugate vaccine (MCV4P) DoD Influenza, inj, MDCK, quadrivalent- pf [id number] 171 Seqirus complet ed Influenza , inj, MDCK, quadrival ent-pf 06/11/17 Given Ambulat ory Pharmac y Influenza, injectable, Madin Aura Canine Kidney, preservative free, quadrivalent 20 [id number] 171 Seqirus (SEQ) comple t ed Influenza , injectabl e, Madin [place] Canine Kidney, preservat gerardo free, quadrival ent DoD influenza, seasonal, injectable-pf 2015 [id number] 140 Seqirus complet ed influenza , seasonal, injectabl e-pf 05/15/16 Given Ambulat ory Pharmac y Influenza, seasonal, injectable, preservative free 1 2015 [id number] 140 Seqirus (SEQ) comple t ed Influenza , seasonal, injectabl e, preservat gerardo free DoD influenza, seasonal, injectable 2014 [id number] 141 CSL Behring complet ed influenza , seasonal, injectabl e 04/12/15 Given Ambulat ory Pharmac y Influenza, seasonal, injectable 1 2014 [id number] 141 [employer] (CS) complet ed Influenza , seasonal, injectabl e DoD hepatitis B adult vaccine 2014 [id number] 43 Merck & Company Inc complet ed hepatitis B adult vaccine 08/17/14 Given Ambulat ory Pharmac y hepatitis B vaccine, adult dosage 3 2014 [id number] 43 Merck (MSD) complet ed hepatitis B vaccine, adult dosage DoD Influenza, injectable, MDCK-pf 2013 [id number] 153 Nov[employer]is [place] [employer] complet ed Influenza , injectabl e, MDCK-pf 04/13/14 Given Ambulat ory Pharmac y Influenza, injectable, Madin [place] Canine Kidney, preservative free 1 2013 [id number] 153 Nov[employer]is [place] [employer] Jacobo. (NOV) complet ed Influenza , injectabl e, Madin Aura Canine Kidney, preservat gerardo free DoD hepatitis B adult vaccine 2013 [id number] 43 Merck & Company Inc complet ed hepatitis B adult vaccine 02/09/14 Given Ambulat ory Pharmac y hepatitis B vaccine, adult dosage 2 2013 [id number] 43 Merck (MSD) complet ed hepatitis B vaccine, adult dosage DoD hepatitis B adult vaccine 2013 [id number] 43 Merck & Company Inc complet ed hepatitis B adult vaccine 12/15/13 Given Ambulat ory Pharmac y hepatitis B vaccine, adult dosage 1 2013 [id number] 43 Merck (MSD) complet ed hepatitis B vaccine, adult dosage DoD influenza, seasonal, injectable-pf 2013 140 complet ed influenza , seasonal, injectabl e-pf 07/24/13 Given Ambulat ory Pharmac y Influenza, seasonal, injectable, preservative free 0 2013 140 (MVX) complet ed Influenza , seasonal, injectabl e, preservat gerardo free DoD influenza, seasonal, injectable 2011 [id number] 141 CSL Behring complet ed influenza , seasonal, injectabl e 04/22/12 Given Ambulat ory Pharmac y Influenza, seasonal, injectable 15 2011 [id number] 141 [employer], Inc. (CS) complet ed Influenza , seasonal, injectabl e DoD tetanus, diphtheria, acellular pertu is 2011 [id number] 115 sanofi pasteur complet ed tetanus, diphtheri a, acellular pertussis 03/18/12 Given Ambulat ory Pharmac y tetanus toxoid, reduced diphtheria toxoid, and acellular pertu is vaccine, adsorbed 0 2011 [id number] 115 Sanofi Pasteur (PMC) complet ed tetanus toxoid, reduced diphtheri a toxoid, and acellular pertussis vaccine, adsorbed DoD influenza, seasonal, injectable 2010 [id number] 141 sanofi pasteur complet ed influenza , seasonal, injectabl e 06/12/11 Given Ambulat ory Pharmac y Influenza, seasonal, injectable 0 2010 [id number] 141 Sanofi Pasteur (PMC) complet ed Influenza , seasonal, injectabl e DoD influenza virus vaccine,split 2009 [id number] 15 sanofi pasteur complet ed influenza virus vaccine,s plit 06/13/10 Given Ambulat ory Pharmac y influenza virus vaccine, split virus (incl. purified surface antigen)-reti red CODE 1 2009 [id number] 15 Sanofi Pasteur (PMC) complet ed influenza virus vaccine, split virus (incl. purified surface antigen)- retired CODE DoD Novel influenza-H1N 1-09, injectable 2009 [id number] 127 Novartis Pharmaceutica ls complet ed Novel influenza -S8Z4-62, injectabl e 11/08/09 Given Ambulat ory Pharmac y Novel influenza-H1N 1-09, injectable 1 2009 [id number] 127 Novartis Pharmaceutica l Jacobo. (NOV) complet ed Novel influenza -W7N1-16, injectabl e DoD influenza virus vaccine,split 2008 [id number] 15 Novartis Pharmaceutica ls complet ed influenza virus vaccine,s plit 05/20/09 Given Ambulat ory Pharmac y influenza virus vaccine, split virus (incl. purified surface antigen)-reti red CODE 1 2008 [id number] 15 Novartis Pharmaceutica l Jacobo. (NOV) complet ed influenza virus vaccine, split virus (incl. purified surface antigen)- retired CODE DoD influenza virus vaccine,split 2007 [id number] 15 sanofi pasteur complet ed influenza virus vaccine,s plit 05/12/08 Given Ambulat ory Pharmac y influenza virus vaccine, split virus (incl. purified surface antigen)-reti red CODE 1 2007 [id number] 15 Sanofi Pasteur ([facility]) complet ed influenza virus vaccine, split virus (incl. purified surface antigen)- retired CODE DoD influenza virus vaccine, live 2006 [id number] 111 Medimmune Inc comple t ed influenza virus vaccine, live 06/10/07 Given Ambulat ory Pharmac y influenza virus vaccine, live, attenuated, for intranasal use 1 2006 [id number] 111 MedImmune, Inc. (MED) complet ed influenza virus vaccine, live, attenuate d, for intranasa l use DoD influenza virus vaccine,split 2005 [id number] 15 sanofi pasteur complet ed influenza virus vaccine,s plit 06/12/06 Given Ambulat ory Pharmac y influenza virus vaccine, split virus (incl. purified surface antigen)-reti red CODE 1 2005 [id number] 15 Sanofi Pasteur ([facility]) complet ed influenza virus vaccine, split virus (incl. purified surface antigen)- retired CODE DoD influenza virus vaccine,split 2004 [id number] 15 sanofi pasteur complet ed influenza virus vaccine,s plit 06/12/05 Given Ambulat ory Pharmac y influenza virus vaccine, split virus (incl. purified surface antigen)-reti red CODE 1 2004 [id number] 15 Sanofi Pasteur ([facility]) complet ed influenza virus vaccine, split virus (incl. purified surface antigen)- retired CODE DoD tetanus-dipht h toxoids (Td) adult/adol 2004 [id number] 09 sanofi pasteur complet ed tetanus-d iphth toxoids (Td) adult/ado l 03/20/05 Given Ambulat ory Pharmac y tetanus and diphtheria toxoids, adsorbed, preservative free, for adult use (2 Lf of tetanus toxoid and 2 Lf of diphtheria toxoid) 1 2004 [id number] 09 Sanofi Pasteur ([facility]) complet ed tetanus and diphtheri a toxoids, adsorbed, preservat gerardo free, for adult use (2 Lf of tetanus toxoid and 2 Lf of diphtheri a toxoid) DoD typhoid Vi capsular polysaccharid e vac 2003 [id number] 101 sanofi pasteur complet ed typhoid Vi capsular polysacch aride vac 12/21/03 Given Ambulat ory Pharmac y typhoid Vi capsular polysaccharid e vaccine 0 2003 [id number] 101 Sanofi Pasteur ([facility]) complet ed typhoid Vi capsular polysacch aride vaccine DoD tuberculin purified protein derivative 2002 [id number] 96 sanofi pasteur complet ed tuberculi n purified protein derivativ e 04/13/03 Given Ambulat ory Pharmac y influenza virus vaccine, whole virus 2002 [id number] 16 [facility] complet ed influenza virus vaccine, whole virus 04/13/03 Given Ambulat ory Pharmac y influenza virus vaccine, whole virus 0 2002 [id number] 16 [facility]) complet ed influenza virus vaccine, whole virus DoD influenza virus vaccine, whole virus 2001 [id number] 16 sanofi pasteur complet ed influenza virus vaccine, whole virus 05/12/02 Given Ambulat ory Pharmac y tuberculin purified protein derivative 2001 [id number] 96 sanofi pasteur complet ed tuberculi n purified protein derivativ e 05/12/02 Given Ambulat ory Pharmac y influenza virus vaccine, whole virus 0 2001 [id number] 16 Sanofi Pasteur ([facility]) complet ed influenza virus vaccine, whole virus DoD tuberculin purified protein derivative 2000 [id number] 96 sanofi pasteur complet ed tuberculi n purified protein derivativ e 05/13/01 Given Ambulat ory Pharmac y influenza virus vaccine, whole virus 2000 [id number] 16 sanofi pasteur complet ed influenza virus vaccine, whole virus 05/13/01 Given Ambulat ory Pharmac y influenza virus vaccine, whole virus 0 2000 [id number] 16 Sanofi Pasteur (PMC) complet ed influenza virus vaccine, whole virus DoD meningococcal polysaccharid e (MPSV4) 2000 [id number] 32 sanofi pasteur complet ed meningoco ccal polysacch aride (MPSV4) 03/04/01 Given Ambulat ory Pharmac y tuberculin purified protein derivative 2000 [id number] 96 sanofi pasteur complet ed tuberculi n purified protein derivativ e 03/04/01 Given Ambulat ory Pharmac y meningococcal polysaccharid e vaccine (MPSV4) 0 2000 [id number] 32 Sanofi Pasteur (PMC) complet ed meningoco ccal polysacch aride vaccine (MPSV4) DoD influenza virus vaccine, whole virus 2000 [id number] 16 [employer] complet ed influenza virus vaccine, whole virus 07/16/00 Given Ambulat ory Pharmac y influenza virus vaccine, whole virus 0 2000 [id number] 16 [employer] (LISA) complet ed influenza virus vaccine, whole virus DoD tuberculin purified protein derivative 1999 [id number] 96 [facility] complet ed tuberculi n purified protein derivativ e 11/14/99 Given Ambulat ory Pharmac y hepatitis A adult vaccine 1998 [id number] 52 Merck & Company Inc complet ed hepatitis A adult vaccine 06/13/99 Given Ambulat ory Pharmac y hepatitis A vaccine, adult dosage 2 1998 [id number] 52 Merck (MSD) complet ed hepatitis A vaccine, adult dosage DoD influenza virus vaccine, whole virus [id number] 16 [facility] complet ed influenza virus vaccine, whole virus 05/16/99 Given Ambulat ory Pharmac y influenza virus vaccine, whole virus 0 19987897 [id number] 16 [employer] (WAL) complet ed influenza virus vaccine, whole virus DoD typhoid vaccine, live, oral 1998 434418. 1B 25 [employer] complet ed typhoid vaccine, live, oral 11/11/98 Given Ambulat ory Pharmac y typhoid vaccine, live, oral 0 1998 206153. 1B 25 [employer] [facility] ([place]) complet ed typhoid vaccine, live, oral DoD hepatitis A adult vaccine 1998 [id number] 52 Merck & Company Inc complet ed hepatitis A adult vaccine 11/08/98 Given Ambulat ory Pharmac y hepatitis A vaccine, adult dosage 1 1998 [id number] 52 Merck (MSD) complet ed hepatitis A vaccine, adult dosage DoD influenza virus vaccine, whole virus [id number] [id number] 16 sanofi pasteur complet ed influenza virus vaccine, whole virus 06/14/98 Given Ambulat ory Pharmac y influenza virus vaccine, whole virus 0 19977300 [id number] 16 Sanofi Pasteur ([facility]) complet ed influenza virus vaccine, whole virus DoD influenza virus vaccine, whole virus 1996 16 complet ed influenza virus vaccine, whole virus 05/11/97 Given Ambulat ory Pharmac y influenza virus vaccine, whole virus 0 1996 16 () complet ed influenza virus vaccine, whole virus DoD yellow fever vaccine 1995 37 complet ed yellow fever vaccine 01/09/96 Given Ambulat ory Pharmac y yellow fever vaccine 0 1995 37 () complet ed yellow fever vaccine DoD typhoid, parenteral, AKD 1995 53 complet ed typhoid, parentera l, AKD 10/10/95 Given Ambulat ory Pharmac y typhoid vaccine, parenteral, acetone-kille d, dried ([place]S. ) 2 1995 53 () complet ed typhoid vaccine, parentera l, acetone-k illed, dried ([place] ) DoD tuberculin purified protein derivative 1994 UNKNOWN 96 Unknown complet ed tuberculi n purified protein derivativ e 02/17/95 Given Ambulat ory Pharmac y meningococcal polysaccharid e (MPSV4) 1994 ACYW-13 5 32 Unknown complet ed meningoco ccal polysacch aride (MPSV4) 02/17/95 Given Ambulat ory Pharmac y measles, mumps and rubella virus vaccine 0 1994 03 () Not Given measles, mumps and rubella virus vaccine DoD meningococcal polysaccharid e vaccine (MPSV4) 0 1994 ACYW-13 5 32 Unknown (UNK) complet ed meningoco ccal polysacch aride vaccine (MPSV4) DoD tetanus-dipht h toxoids (Td) adult/adol 1994 09 complet ed tetanus-d iphth toxoids (Td) adult/ado l 02/08/95 Given Ambulat ory Pharmac y poliovirus vaccine, live, oral 1994 02 complet ed polioviru s vaccine, live, oral 02/08/95 Given Ambulat ory Pharmac y trivalent poliovirus vaccine, live, oral 0 1994 02 () complet ed trivalent polioviru s vaccine, live, oral DoD tetanus and diphtheria toxoids, adsorbed, preservative free, for adult use (2 Lf of tetanus toxoid and 2 Lf of diphtheria toxoid) 0 1994 09 () complet ed tetanus and diphtheri a toxoids, adsorbed, preservat gerardo free, for adult use (2 Lf of tetanus toxoid and 2 Lf of diphtheri a toxoid) DoD Results Combined list of recent chemistry, hematology and other laboratory results from Department of Defense and Veterans Affairs, ranging from 15 months to all on record, depending upon the facility. Order Name Results Value Reference Range Date Interpretation Specimen Comments Source Infectiou s Disease HIV-1/O/2 Non-Reac tive 1 (09/22/23 12:16 PM) 09/21 N Interpretiv e Data: INTERPRETAT ION: This method is a screening procedure for the detection of HIV p24 Antigen and Antibodies to HIV-1, including Group O, and/or HIV-2. NON-REACTIV E: HIV-1 antigen and HIV-1 / HIV-2 antibodies were not detected. No laboratory evidence of HIV infection. A negative test result does not exclude the possibility of exposure to or infection with HIV. HIV antibodies and/or p24 antigen may be undetectabl e in some stages of the infection and in some clinical conditions. If acute HIV infection is suspected, consider submitting another specimen to a reference laboratory for HIV-1 RNA. SCREEN REACTIVE - CONFIRMATIO N TO FOLLOW: Possible presence of HIV-1antibo dies, HIV-2 antibodies and/or HIV-1 p24 antigen. Specimen will reflex to the confirmatio n testing that fulfills the Center for Disease Control and Prevention' s HIV diagnostic algorithm. Refer to [facility] Lab Guide for additional information : [email or web address] x Testing performed by Deirdre yoon. [id number] Miscellan eous Sendouts Repository Sample Received (09/22/23 12:16 PM) 09/21 N [id number] Encounters Combined list of: 1) Encounters from Department of Veterans Affairs facilities going backup to the last 18 months, not all VA inpatient encounters are included; 2) Encounters from the Department of Defense facilities going backup to 280 months. Location Location Details Encounter Type Encounter Number Reason For Visit Attending Provider ADM Date DC Date Status Disposition Source [facility](PHA Cell) TELE CONSULT [id number] Notes Entered by: JUJU MATHEW 22 Aug 2017 0821 ------- ------- ------- ------- -- Anti-Noris Munoz axis for MONICA PIZARRO 08/[address] [place] [address](P LEE Cell) [place] [address](AFN G 104 Med Sq-FM) OUTPATIENT [id number] Notes Entered by: KOMAL DEL ROSARIO 16 Mar 2018 1202 ------- ------- ------- ------- -- PHAQ KOMAL DEL ROSARIO 03/16 [facility] [place] [address](A FNG 104 Med Sq-FM) [place] [address](AFN G 104 Med Sq-FM) OUTPATIENT [id number] Notes Entered by: WALT ESCOBAR 14 Oct 2018 1402 ------- ------- ------- ------- -- PHAQ review WALT ESCOBAR 10/14 Released w/o Limitations [facility] [place] [address](A FNG 104 Med Sq-FM) [place] [address](AFN G 104 Med Sq-FM) OUTPATIENT [id number] Notes Entered by: KOMAL DEL ROSARIO 04 Sep 2019 1328 ------- ------- ------- ------- -- KOMAL SANDHU 09/04 [facility] [place] [address](A FNG 104 Med Sq-FM) [facility], [place] [address](AFN G 104 Med Sq-FM) OUTPATIENT [id number] Notes Entered by: KOMAL DEL ROSARIO 27 Dec 2019 1228 ------- ------- ------- ------- -- THOMAS 1 KOMAL DEL ROSARIO 12/26 [facility] Limitations [facility] [place] [address](A FNG 104 Med Sq-FM) [facility], [place] [address](AFN G 104 Med Sq-FM) OUTPATIENT [id number] Notes Entered by: KOMAL DEL ROSARIO 23 Apr 2020 1005 ------- ------- ------- ------- -- THOMAS2 KOMAL DEL ROSARIO 04/23 [facility]ased [facility] Limitations [facility] [place] [address](A FNG 104 Med Sq-FM) [place] [address](AFN G 104 Med Sq-FM) OUTPATIENT [id number] Notes Entered by: MAMIE BLANCAS 22 Oct 2020 0937 ------- ------- ------- ------- -- Annual Audiogr am KOMAL DEL ROSARIO 10/22 Released w/o Limitations [facility] [place] [address](A FNG 104 Med Sq-FM) [place] [address](AFN G 104 Med Sq-FM) OUTPATIENT [id number] Notes Entered by: INES IQBAL 18 Sep 2021 0926 ------- ------- ------- ------- -- Audiogr am/ABRAHAN/ DAISY QUICK 09/18 Released w/o Limitations [facility] [place] [address](A FNG 104 Med Sq-FM) [place] [address](AFN G 104 Med Sq-FM) OUTPATIENT [id number] Notes Entered by: KOMAL DEL ROSARIO 26 Feb 2022 1429 ------- ------- ------- ------- -- LBP KOMAL DEL ROSARIO 02/26 Released with Work/Duty Limitations [facility] [place] [address](A FNG 104 Med Sq-FM) zzJoint Umbrella Org Between Visit 03/06 Discharge Disposition: Home or Self Care Kaykay Cevallos [id number]-[id number] MDG Care Not Rendered [id number] 05/09 Discharge Disposition: Home or Self Care 8203R-1 04 G 8203R-104 MDG Care Not Rendered [id number] 09/21 Discharge Disposition: Home or Self Care 8203R-1 04 MDG zzJoint Umbrella Org Between Visit 10/12 Discharge Disposition: Home or Self Care Kaykay mustafa Org 8203R-104 MDG Care Not Rendered [id number] 10/14 Discharge Disposition: Home or Self Care 8203R-1 04 MDG Procedures Combined list of: 1) Procedures from Department of Veterans Affairs facilities going back up to thelast 18 months, not all VA non-surgical procedures are included; 2) All procedures from the Department of Defense facilities. Procedure Procedure Type Code Date Perfomer Comments Sourc e No data available for this section Ambulatory P harmacy Social History Combined list of available smoking, tobacco, and other social history from Department of Defense and Veterans Affairs facilities. Social History Type Response Date Comment Sourc e This section is an empty social history section. DoD Assessment and Plan Combined list of future care activities from Department of Defense and Veterans Affairs facilities (e.g., assessment and plan notes, appointments, orders, and referrals). Additional future care activities may be listed in the Plan of Care section. Result Assessment and Plan Date Source Assessment and Plan No data available for this section 11/01/2024 Ambulatory Pharmacy Functional Status Combined list of recent functional and cognitive assessments recorded at [facility] of Defense and [facility] ([place]VA Functional Sweetser Measurement (FIM) Scale: 1 = Total Assistance (Subject = 0% +), 2 = Maximal Assistance (Subject = 25% +), 3 = Moderate Assistance (Subject = 50% +), 4 = Minimal Assistance (Subject = 75% +), 5 = Supervision, 6 = Modified Sweetser (Device), 7 = Complete [place]er (Timely, Safely). Assessment Date/Time Source Assessment Type Assessment Skill Assessment Score Assessment Details No data available for this section
== END 2024-11-01 11:03 | disposition home or self-care (01) ==
LOC: HO.HMCH 09:49
PROVIDERS: PCP Internal Medicine; Visit Provider Internal Medicine
DX: Z00.00 Encounter for general adult medical examination without abnormal findings (principal); E78.2 Mixed hyperlipidemia; E55.9 Vitamin D deficiency, unspecified; K21.9 Gastro-esophageal reflux disease without esophagitis; H91.91 Unspecified hearing loss, right ear; E66.3 Overweight

== ENCOUNTER → 2024-11-01 09:48 | Outpatient (BNVA) | payer OTHER, SELFPAY | PROVIDERS: PCP Internal Medicine; Visit Provider Internal Medicine | DX: Z00.00 Encounter for general adult medical examination without abnormal findings (principal); E78.2 Mixed hyperlipidemia; E55.9 Vitamin D deficiency, unspecified; K21.9 Gastro-esophageal reflux disease without esophagitis; H91.91 Unspecified hearing loss, right ear; E66.3 Overweight | CPT/HCPCS: 96127 ==

== ENCOUNTER 2025-04-08 11:28 | Outpatient (REF) | payer SELFPAY ==
--- OUTSIDE RECORDS SUMMARY | 2020-12-27 16:05 | XMS_ITS | Encounter Summary ---
Author Organization [facility] Address [address] [facility] [address] [place] [address] Phone Care Team Providers Care District Manager In Training Name Role Phone Christo Harrison MD Primary Care Provider [phone] Encounter Details Date Type Department Care Team (Late st Contact Info) Description 12/27/2020 4:05 PM EDT Hospital Encounter [facility] [address] [place] [address] Chema Benson PA [address] [place] [id number] [email or web address] Social History Tobacco Use Types Packs/Day Years Used Date Smoking Tobacco: Never Smokeless Tobacco: Never Alcohol Use Standard Drinks/Week Comments Not Currently 0 (1 standard drink = 0.6 oz pur e alcohol) Education Answer Date Recorded Are you interested in more education? Not on enmanuel e 11/13/2022 Are you concerned about learning? Not on file 11/13/2022 No 11/13/2022 No 11/13/2022 Digital Access Answer Date Recorded No 12/05/2022 No 12/05/2022 Reliable internet access at home? Not on file 12/05/2022 Device with a working camera? Not on file Sex and Gender Information Value Date Recorded Sex Assigned at Not on file Legal Sex Male 5:36 PM EST Gender Identity Not on file Sexual Orientation Not on file documented as of this encounter Plan of Treatment Not on file documented as of this encounter Procedures Procedure Name Priority Date/Time Associated Diagnosis Comments XR RIBS 3 OR MORE VIEWS WITH PA CHEST (RIGHT) Urgent/patient waiting 12/27/2020 4:16 PM EDT Rib contusion, right, initial encounter documented in this encounter Results * XR RIBS 3 OR MORE VIEWS WITH PA CHEST (RIGHT) (12/27/2020 4:16 PM EDT) Anatomical Region Laterality Modality Chest Computed Radiogr aphy 12/27/2020 4:22 PM EDT Impressions 12/27/2020 4:50 PM EDT No fracture. ATTESTATION: John Powell as teaching physician, have reviewed the images for this case and if necessary edited the report originally created by Ernesto Romo. Narrative 12/27/2020 4:50 PM EDT TECHNIQUE: XR RIBS 3 OR MORE VIEWS WITH PA CHEST (RIGHT) COMPARISON: Chest x-ray 04/09/2011 FINDINGS: A radiopaque marker is identified near the costochondral junction of the anterior right ninth rib. There is no evidence of fracture. The lung is clear and fully expanded. There is a 9 mm rounded density projecting over the left upper quadrant abdomen. Procedure Note John Pang MD - 12/27/2020 TECHNIQUE: XR RIBS 3 OR MORE VIEWS WITH PA CHEST (RIGHT) COMPARISON: Chest x-ray 04/09/2011 FINDINGS: A radiopaque marker is identified near the costochondral junction of theanterior right ninth rib. There is no evidence of fracture. The lung isclear and fully expanded. There is a 9 mm rounded density projecting overthe left upper quadrant abdomen. IMPRESSION: No fracture. ATTESTATION: John Powell as teaching physician, have reviewed theimages for this case and if necessary edited the report originally createdby Ernesto Romo. Chema RIVERA IMG XR CHEST Final Resul t documented in this encounter Visit Diagnoses Not on filedocumented in this encounter Additional Health Concerns Infection Onset Date Last Indicated Resolved Time CoV-Risk 06/04/2022 06/04/2022 06/15/2022 1:52 AM EST documented as of this encounter Care Teams District Manager In Training Relationship Specialty Start Date End Date Christo Harrison MD [address] [place] [address] Dr Freitas [place] [address] PCP - General Internal Medicine 12/27/20 documented as of this encounter Additional Source Comments The information contained in this document represents components of the legal health record. It is not the complete legal health record.[facility]
--- OUTSIDE RECORDS SUMMARY | 2022-12-18 13:47 | XMS_ITS | Encounter Summary ---
Author Organization [facility] Address [address] [facility] [address] [place] [address] Phone Care Team Providers Care Manager Global Name Role Phone Christo Harrison MD Primary Care Provider [phone] Encounter Details Date Type Department Care Team (Late st Contact Info) Description 12/18/2022 1:47 PM EDT Hospital Encounter [facility] [address] [place] [phone] Sharon Albert FNP [address] [place] [phone] [email or web address] [place] Social History Tobacco Use Types Packs/Day Years [...] IMPRESSION: No fracture or dislocation. Sharon Albert MICA MINER BLASTING IMG XR UPPER EXTREMITY Milagros l Result documented in this encounter Visit Diagnoses Not on filedocumented in this encounter Care Teams Manager Global Relationship Specialty Start Date End Date Christo Harrison MD [address] [place] [address] [place] [address] PCP - General Internal Medicine 12/27/20 documented as of this encounter Additional Source Comments The information contained in this document represents components of the legal health record. It is not the complete legal health record.[facility]
--- OUTSIDE RECORDS SUMMARY | 2025-04-08 13:00 | XMS_ITS | Clinical Summary ---
Author Organization [facility] Address [address] [place] [id number] Phone Care Team Providers Care Grain Sacker Name Role Phone Christo Harrison MD Primary Care Provider [phone] Allergies No known active allergies Medications naproxen (NAPROSYN) 500 MG tablet Take 1 tablet (500 mg total) by mouth 2 (two) times a day for 3 days. Then twice daily as needed for pain, inflammation 20 tablet 3 Active Active Problems No known active problems Immunizations Immunization Administration Dates Next Due COVID-19 (Pre-05/02) Moderna Vaccine, Bivalent 6mo+ 05/08/2022 Hepatitis A, Adult 06/13/1999,11/08/1998 Hepatitis B Adult 08/17/2014,02/09/2014,12/16/19 14 INFLUENZA, SPLIT VIRUS, TRIVALENT PF 05/15/2016, 07/24/2013 INFLUENZA, SPLIT VIRUS, TRIV ALENT W/ PRESERVATIVE IM 04/15/2015,04/12/2015,04/22/2012,06/12 Influenza Quadrivalent MDCK Preservative Free IM 06/11/2017 Influenza Quadrivalent Prese rvative Free IM 04/02/2021,04/15/2019 Influenza Quadrivalent w/ Pr eservative IM 04/19/2019,05/03/2018,06/22/2017,05/12 Influenza Split (Incl. Purif ied Surface Antigen) 06/13/2010,05/20/2009,05/12/2008,06/12,06/12/2005 Influenza Trivalent MDCK Pre servative Free IM 04/13/2014 Influenza quadrivalent nasal 06/10/2007 Influenza, Unspecified Formulation 04/23/2020 Influenza, whole 04/13/2003, 2,05/13/2001,07/16,05/16/1999,06/14/1998,05/11/1997 MMR 08/25/2017 Meningococcal MCV4P 08/25/2017 Meningococcal MPSV4 03/04/2001,02/17/1995 Novel [id number], Injectable 11/08/2009 Polio - OPV 02/08/1995 Td (adult),2 Lf Tetanus Toxo id, PF, Adsorbed 03/20/2005,02/08/1995 Tdap 07/16/2016,03/18/2012 Typhoid, ViCPs 08/25/2017,12/21/2003 Typhoid,oral 1998 Typhoid,parenteral, AKD (US ) 10/10/1995 Yellow Fever 01/09/1996 Social History Tobacco Use Types Packs/Day Years [...] on file Sexual Orientation Not on file Last Filed Vital Signs Vital Sign Reading Time Taken Comments Blood Pressure 120/90 12/18/2022 1:35 PM EDT Pulse 78 12/18/2022 1:33 PM EDT Temperature 35.9 C (96.6 F) 12/18/2022 1:33 PM EDT Respiratory Rate 17 12/18/2022 1:33 PM EDT Oxygen Saturation 96% 12/18/2022 1:33 PM EDT Inhaled Oxygen Concentration - - Weight 88.5 kg (195 lb) 12/18/2022 1:33 PM EDT Height 177.8 cm (5' 10 ) 12/18/2022 1:33 PM EDT Body Mass Index 27.98 12/18/2022 1:33 PM EDT Plan of Treatment Health Maintenance Due Date Last Done Comments LIPID PANEL 1969 DEPRESSION SCREENING 1981 HEPATITIS C SCREENING 11/12/1987 HIV ONE-TIME SCREENING (18-65 YEARS) 11/12/1987 SCREENING FOR DIABETES 04/09/2014 04/09/2011 COLOGUARD 2014 COLONOSCOPY 2014 COLORECTAL CANCER SCREENING 2014 FIT TEST 2014 FOBT 2014 SIGMOIDOSCOPY 2014 VIRTUAL COLONOSCOPY 2014 PNEUMOCOCCAL VACCINES (50+ years) (1 of 1 - PCV) 11/12/2019 ZOSTER VACCINES (1 of 2) 11/12/2019 INFLUENZA VACCINE (#1) 2025 , 04/23/2020, 04/19/2019, Additional history exists COVID-19 VACCINE (2024- season) 2025 05/08/2022, 06/17/2021, 05/23/2021, Additional history exists Adult Td,Tdap Booster 07/16/2026 07/16/2016 , 03/18/2012, 03/20/2005, Additional history exists HEPATITIS A VACCINES Aged Out 06/13/1999, 11/08/18 99 No longer eligible based on patient's age to complete this topic MENINGOCOCCAL VACCINES (ACWY) Aged Out 08/25/2017, 03/04/2001, 02/17/1995 No longer eligible based on patient's age to complete this topic SMOKING STATUS SCREENING (Once After 26 Yrs) Completed 12/18/2022 HIB VACCINES Aged Out No longer eligi ble based on patient's age to complete this topic MENINGOCOCCAL VACCINES (B) Aged Out N o longer eligible based on patient's age to complete this topic Medical Devices Not on file Insurance [facility] Care Teams Grain Sacker Relationship Specialty Start Date End Date Christo Harrison MD [address] [place] [address] [place] [address] PCP - General Internal Medicine 12/27/20 Additional Source Comments The information contained in this document represents components of the legal health record. It is not the complete legal health record.[facility]
== END 2025-04-08 11:29 | disposition home or self-care (01) ==
LOC: HO.HAP 11:28
PROVIDERS: Visit Provider Internal Medicine
DX: Z13.89 Encounter for screening for other disorder (principal)
CPT/HCPCS: V5299

== ENCOUNTER 2025-04-24 10:02 | Outpatient (AMB) | payer OTHER, SELFPAY ==
--- OUTSIDE RECORDS SUMMARY | 2020-12-27 16:05 | XMS_ITS | Encounter Summary ---
Author Organization [facility] Address [address] [facility] [address] [place] [address] Phone Care Team Providers Care Emergency Crew Supervisor Name Role Phone Christo Harrison MD Primary Care Provider [phone] Encounter Details Date Type Department Care Team (Late st Contact Info) Description 12/27/2020 4:05 PM EDT Hospital Encounter [facility] [address] [place] [address] Chema Benson PA [address] [place] [id number] [email or web address] Social History Tobacco Use Types Packs/Day [...] documented as of this encounter Care Teams Emergency Crew Supervisor Relationship Specialty Start Date End Date Christo Harrison MD [address] [place] [address] Dr Freitas [facility] [place] [address] PCP - General Internal Medicine 12/27/20 documented as of this encounter Additional Source Comments The information contained in this document represents components of the legal health record. It is not the complete legal health record.[facility]
--- OUTSIDE RECORDS SUMMARY | 2022-12-18 13:47 | XMS_ITS | Encounter Summary ---
Author Organization [facility] Address [address] [facility] [address] [place] [id number] Phone Care Team Providers Care Road Manager Name Role Phone Christo Harrison MD Primary Care Provider [phone] Encounter Details Date Type Department Care Team (Late st Contact Info) Description 12/18/2022 1:47 PM EDT Hospital Encounter [facility] [address] [place] [id number] Sharon Albert FNP [address] [place] [address] [email or web address] Social History Tobacco Use Types Packs/Day Years [...] Name Priority Date/Time Associated Diagnosis Comments XR ELBOW 1 VIEW (RIGHT) Urgent/patient waiting 12/18/2022 1:53 PM EDT Contusion of right elbow, initial encounter documented in this encounter Results * XR ELBOW 1 VIEW (RIGHT) (12/18/2022 1:53 PM EDT) Anatomical Region Laterality Modality Elbow Right Computed Radiogr aphy 12/18/2022 1:59 PM EDT Impressions 12/18/2022 2:01 PM EDT No fracture or dislocation. Narrative 12/18/2022 2:01 PM EDT XR ELBOW 1 VIEW (RIGHT) COMPARISON: None FINDINGS: No fracture. Normal alignment. Normal joint spaces. No effusion. No radiopaque foreign body. Procedure Note Edwin Frausto MBBS - 12/18/2022 XR ELBOW 1 VIEW (RIGHT) COMPARISON: None FINDINGS: No fracture. Normal alignment. Normal joint spaces. No effusion. Noradiopaque foreign body. IMPRESSION: No fracture or dislocation. Sharon Albert SAS ARCHITECT IMG XR UPPER EXTREMITY Milagros l Result documented in this encounter Visit Diagnoses Not on filedocumented in this encounter Care Teams Road Manager Relationship Specialty Start Date End Date Christo Harrison MD [address] [place] [address] [place] [address] PCP - General Internal Medicine 12/27/20 documented as of this encounter Additional Source Comments The information contained in this document represents components of the legal health record. It is not the complete legal health record.[facility]
[2025-04-24 10:18] VITALS: BP 122/80; PULSE 66; O2SAT 95; BMI 28.3
--- NOTE | 2025-04-24 10:18 | A.OFFPC_ITS ---
Vital Signs 04/24/25 10:18 Height 5 ft 10 in Weight 197 lb 4 oz BMI 28.3 BP 122/80 Blood Pressure Location Lt brachial Position Sitting Pulse 66 Pulse Source Pulse Oximeter Pulse Oximetry (%) 95 Oxygen Delivery Method Room Air Intake Visit Reasons: hyperlipidemia Machine Operators Required: No Accompanied by: Self / Same As Patient Allergies No Known Allergies Allergy (Verified 04/24/25 10:53) Medication List - Last Reconciled 04/24/25 by Christo Harrison MD omeprazole magnesium (Prilosec OTC) 20 mg PO DAILY Tobacco use date assessed: 04/24/25 Dental Screening Dental Screen Date: 04/24/25 Did you have a dental visit in the last 12 months?: Yes Did you have a dental problem in the last 6 months where you did not have access to dental care?: No Was dental information given to patient?: Patient has dentist HPI hyperlipidemia HPI Details Patient comes in today for his follow up visit States that he feels okay He denies any headaches or dizziness Denies any chest pains, no SOB No nausea/vomiting, no abdominal pain No change in bowel habits noted Needs his Omeprazole Rx refilled although he is not sure if his insurance will cover the prescription He was not able to get his follow up labs done prior to his appointment today [facility] Medical History Vitamin D deficiency Mixed hyperlipidemia Overweight (BMI 25.0-29.9) Diverticulosis Hx of hearing loss GERD (gastroesophageal reflux disease) Surgical History Hx of colonoscopy History of urologic surgery Family History Father CVD (cardiovascular disease) Mother Hypertension Social History Housing: House Alcohol intake: current Alcohol intake frequency: holidays/special occasions only Patient Tobacco Use Status: Never used Tobacco e-Cigarette/Vaping Use: Never Used Current occupational status: employed Cognitive needs: No Hearing needs: No Vision needs: Yes Questionnaire PHQ-9 Over the last 2 weeks, how often have you been bothered by any of the following problems? 1. Little interest or pleasure in doing things: not at all 2. Feeling down, depressed, or hopeless: not at all 3. Trouble falling or staying asleep, or sleeping too much: not at all 4. Feeling tired or having little energy: not at all 5. Poor appetite or overeating: not at all 6. Feeling bad about yourself - or that you are a failure or have let yourself or your family down: not at all 7. Trouble concentrating on things, such as reading the newspaper or watching television: not at all 8. Moving or speaking so slowly that other people could have noticed. Or the opposite - being so fidgety or restless that you have been moving around a lot more than usual: not at all 9. Thoughts that you would be better off or of hurting yourself in some way: not at all Total score: 0 Depression Screening Interpretation: Negative Depression Screening Done: Yes 48616 - PHQ-9 Billing: Yes Source: Developed by Drs. Dung Lilly, Che Pryor, Gallito Rice and colleagues, with an educational ange from [employer]. Thrive Questionnaire Date Thrive assessed: 04/24/25 I am a: Patient What is your living situation today?: I have a steady place to live Within the past 12 months, did the food you bought not last and you didn't have the money to get more?: Never true Within the past 12 months, did you worry whether your food would run out before you got money to buy more?: Never true Do you have trouble paying for medicines?: No Do you have trouble getting transportation to medical appointments?: No Do you have trouble paying your heating and electricity bill?: No Do you have trouble taking care of your child, family member or friend?: No Do you have trouble with day-to-day activities such as bathing, preparing meals, shopping, managing finances, etc.?: No Are you currently unemployed and looking for a job?: No Are you interested in more education?: No Currently or been in a relationship where the following occur: No concerns reported THRIVE Score: 0 AUDIT C Alcohol Use Questionnaire (AUDIT-C) 1. How often do you have a drink containing alcohol?: Monthly or less 2. How many drinks containing alcohol do you have on a typical day when you are drinking?: 1 or 2 3. How often do you have six or more drinks on one occasion?: Never Total Score: 1 Score Reviewed/Action Taken: Yes TORSTEN-7 AMB Questionnaire TORSTEN-7 Date TORSTEN - 7 assessed: 11/01/24 Source: Developed by Drs. Dung Lilly, Che Pryor, Gallito Rice and colleagues, with an educational ange from [employer]. Review of Systems Const Denies chills, Denies fatigue, Denies fever(s) and Denies headache(s) ENT Denies dysphagia, Denies dizziness, Denies otalgia, Denies headache(s), Denies neck pain, Denies odynophagia and Denies sore throat Card Denies rapid heart rate, Denies irregular heart rhythm, Denies palpitations and Denies dyspnea Resp Denies chest congestion, Denies cough and Denies dyspnea GI Denies abdominal pain, Denies constipation, Denies dysphagia, Denies heartburn, Denies diarrhea, Denies nausea, Denies odynophagia and Denies vomiting Denies difficulty urinating, Denies dysuria and Denies urinary frequency Musc Denies back pain, Denies arthralgias and Denies neck pain Skin/Breast Denies rash Neuro Denies dizziness, Denies headache(s) and Denies paresthesias Endo Denies fatigue and Denies palpitations Physical exam (Primary Care) Vital Signs: Last Vital Signs Pulse 66 04/24/25 10:18 BP 122/80 04/24/25 10:18 Pulse Ox 95 04/24/25 10:18 Oxygen Delivery Method Room Air 04/24/25 10:18 BMI result Body Mass Index 28.3 Tobacco/Smoking Status: Tobacco use Status Tobacco use date assessed 04/24/25 04/24/25 10:21 Patient Tobacco Use Status Never used Tobacco 04/24/25 10:21 e-Cigarette/Vaping Use Never Used 04/24/25 10:21 Depression Screening Interpretation: Negative Thrive Assessment: Date of Thrive Assessment Date Thrive assessed 04/24/25 04/24/25 10:21 Currently or been in a relationship where the following occur: No concerns reported Const General: no acute distress and alert HENMT Ears: TM's normal bilaterally and EAC's normal Throat: Yes posterior oropharynx normal and Yes tonsils normal (no TP conge stion) Neck Neck: Yes supple and No lymphadenopathy Thyroid: Thyroid normal Resp Auscultation: clear to auscultation bilaterally, no rales and no wheezes Cardio Rate: regular rate Rhythm: regular rhythm Heart sounds: no murmurs GI Palpation (GI): Soft to palpation and nontender Auscultation: normal bowel sounds General: Yes no CVA tenderness Back/Spine/Pelvis Back: no CVA tenderness Thoracic/Lumbar Spine: No lumbar spinal tenderness Skin Rashes: no rashes Extrem General: Yes no clubbing, cyanosis or edema Coding Level of Care Code Est Pt Level 4 (31347) Diagnoses Mixed hyperlipidemia E78.2 Vitamin D deficiency E55.9 Gastroesophageal reflux disease without esophagitis K21.9 Esophagitis presence: without esophagitis Hearing loss of right ear, unspecified hearing loss type H91.91 Hearing loss type: unspecified Overweight (BMI 25.0-29.9) E66.3 Additional Codes PHQ-9 - 54495 - PHQ-9 Billing: Yes ([id number]) Assessment & Plan Assessment & Plan (1) Mixed hyperlipidemia: Code(s): E78.2 - Mixed hyperlipidemia Category: Medical Plan: Patient is reminded that his cholesterol levels were still elevated when they were last checked in October 2024 but have improved slightly from previous, with his total cholesterol then at 221 mg/dL and LDL cholesterol at 149 mg/dL Reinforced low-cholesterol diet Patient would like to continue with diet modification for now and still wishes to avoid taking Rx as much as possible but is agreeable to taking some Rx IF his cholesterol numbers do not improve further over the next few months Will have him recheck his labs and fasting lipids in 6 months for follow up (2) Vitamin D deficiency: Code(s): E55.9 - Vitamin D deficiency, unspecified Category: Medical Plan: Continue Vitamin D3 2000 units QD Will recheck his Vitamin D level in 6 months for follow up (3) GERD (gastroesophageal reflux disease): Code(s): K21.9 - Gastro-esophageal reflux disease without esophagitis Category: Medical Qualifiers: Esophagitis presence: without esophagitis Qualified Code(s): K21.9 - Gastro-esophageal reflux disease without esophagitis Plan: Upper GI series done in late January 2024 revealed (+) moderately disorganized esophageal peristalsis, with a small type I hiatal hernia There is (+) mild gastroesophageal reflux noted and (+) mildly thickened gastric rugal folds, which suggests gastritis Dietary restrictions reinforced Continue Omeprazole 20 mg QD - Rx refilled (have advised patient that his pharmacist should be able to tell him if his insurance will cover the Rx once th ey process his refill) If his GI symptoms persist despite Rx, will need to see gastroenterology for further evaluation and consideration for EGD (4) Hearing loss in right ear: Code(s): H91.91 - Unspecified hearing loss, right ear Category: Medical Qualifiers: Hearing loss type: unspecified Qualified Code(s): H91.91 - Unspecified hearing loss, right ear Plan: Patient uses a hearing aid in his right ear but his hearing aid is now being repaired; hearing in his left ear is normal Follow up with Speech and Hearing as scheduled (5) Overweight (BMI 25.0-29.9): Code(s): E66.3 - Overweight Category: Medical Plan: Reinforced diet/exercise as tolerated/lose weight Plan To return in 6 months for his next annual physical examination Orders: Orders Comprehensive [place]. Panel Fast 6 Months E78.00 - Pure hypercholesterolemia, un specified, Z00.00 - Encounter for general adult medical examination without abnormal findings Lipid Panel 6 Months E78.00 - Pure hypercholesterolemia, unspecified, Z00.00 - Encounter for general adult medical examination without abnormal findings UA CC w/rflx Micro + Cult 6 Months R30.0 - Dysuria, Z00.00 - Encounter for general adult medical examination without abnormal findings Prostate Specific Antigen 6 Months N40.0 - Benign prostatic hyperplasia without lower urinary tract symptoms, Z00.00 - Encounter for general adult medical examination without abnormal findings Complete Blood Count Auto Diff 6 Months D64.9 - Anemia, unspecified, Z00.00 - Encounter for general adult medical examination without abnormal findings TSH reflex Free T4 6 Months E78.00 - Pure hypercholesterolemia, unspecified, Z00.00 - Encounter for general adult medical examination without abnormal findings Vitamin D 25-OH Total 6 Months E55.9 - Vitamin D deficiency, unspecified, Z00.00 - Encounter for general adult medical examination without abnormal fin dings Vitamin B12 and Folate 6 Months E53.8 - Deficiency of other specified B group vitamins, Z00.00 - Encounter for general adult medical examination without abnormal findings Medications: Changed From omeprazole magnesium (Prilosec OTC) 20 mg PO DAILY To omeprazole magnesium (Prilosec OTC) 20 mg PO DAILY PRN 90 tabs 3RF acid reflux/heartburn symptoms 90 days
--- OUTSIDE RECORDS SUMMARY | 2025-04-24 11:47 | XMS_ITS | Clinical Summary ---
Author Organization [facility] Address [address] [place] [id number] Phone Care Team Providers Care Scratch Brusher Name Role Phone Christo Harrison MD Primary Care Provider [phone] Allergies No known active allergies Medications naproxen [...] Meningococcal MCV4P 08/25/2017 Meningococcal MPSV4 03/04/2001,02/17/1995 Novel [id number], Injectable 11/08/2009 Polio - OPV 02/08/1995 Td [...] 07/16/2016 , 03/18/2012, 03/20/2005, Additional history exists RSV VACCINE (1 - 1-dose 75+ series) 2044 HEPATITIS A VACCINES Aged Out 06/13/1999, 11/08/18 [...] topic Medical Devices Not on file Insurance [facility] Address: [facility] [id number] [place] [id number] Care Teams Scratch Brusher Relationship Specialty Start Date End Date Christo Harrison MD [address] [place] [address] [place] [address] PCP - General Internal Medicine 12/27/20 Additional Source Comments The information contained in this document represents components of the legal health record. It is not the complete legal health record.[facility]
== END 2025-04-24 11:04 | disposition home or self-care (01) ==
LOC: HO.HMCH 10:03
PROVIDERS: PCP Internal Medicine; Visit Provider Internal Medicine
DX: E78.2 Mixed hyperlipidemia (principal); E55.9 Vitamin D deficiency, unspecified; K21.9 Gastro-esophageal reflux disease without esophagitis; H91.91 Unspecified hearing loss, right ear; E66.3 Overweight

== ENCOUNTER → 2025-04-24 10:02 | Outpatient (BNVA) | payer OTHER, SELFPAY | PROVIDERS: PCP Internal Medicine; Visit Provider Internal Medicine | DX: E78.2 Mixed hyperlipidemia (principal); E55.9 Vitamin D deficiency, unspecified; K21.9 Gastro-esophageal reflux disease without esophagitis; H91.91 Unspecified hearing loss, right ear; E66.3 Overweight; Z68.28 Body mass index [BMI] 28.0-28.9, adult | CPT/HCPCS: 96127; 99212 ==

== ENCOUNTER 2025-04-24 11:09 | Outpatient (REF) | payer SELFPAY | END 2025-04-24 11:10 | disposition home or self-care (01) | LOC: HO.HAP 11:09 | PROVIDERS: Visit Provider Internal Medicine | DX: Z46.1 Encounter for fitting and adjustment of hearing aid (principal); H90.41 Sensorineural hearing loss, unilateral, right ear, with unrestricted hearing on the contralateral side | CPT/HCPCS: V5014 ==